=== PATIENT | male | born 1970 | race Two or more races ===

== ENCOUNTER 2016-05-31 07:38 | Emergency (ER) | payer BC, OTHER ==
[2016-05-31 07:43] VITALS: TEMP 98.4; BMI 33.3
--- NOTE | 2016-05-31 07:46 | PDOC ---
History of Present Illness <Naya Mclean - Last Filed: 05/31/16 15:57> - General History Source: Patient Exam Limitations: No Limitations - History of Present Illness Initial Comments: 05/31/16 07:50 CHIEF COMPLAINT: Shortness of breath PCP: Dr. Dale Alegre HISTORY OF PRESENT ILLNESS: Patient is a 45 [id number] presented to the ED with the chief complaints of SOB x 1 day. A/c to the patient, he was feeling well until last night, after work he ate dinner (Rice,beans, plantins,pork chops) and started to have SOB. He then took a glass of juice and felt better ;slept at 11:30pm and woke up at 5 :30 with SOB. He opened the window for fresh air but started feeling lightheaded , SOB persisted and hence came to the ED. Denies chest pain, cough, palpitation, abdominal pain, nausea, vomiting, fever, chills, rigors or sweating. Patient mentions this was his first episode. He has a h/o Hypertriglyceridemia, full cardiac work up was done at [facility] and had a cardiac cath without placement of stents. Bowel/Bladder habit normal. Sleep/Appetite Normal. Recent Travel: None PAST MEDICAL HISTORY: Walking pneumonia (twice) Migraine, Hypertriglyceridemia, Colon polyps, Appendectomy, Tonsillectomy, Left ankle repair, Left inguinal hernia repair. Takes no medication. PAST SURGICAL HISTORY: As mentioned above Social History: Smoking: Denies Alcohol: Denies Drugs: Denies Family History: Allergies: NKDA <Anu James - Last Filed: 05/31/16 17:11> - General Chief Complaint: Shortness of Breath Stated Complaint: TROUBLE BREATHING Time Seen by Provider: 05/31/16 07:46 Past History <Naya Mclean - Last Filed: 05/31/16 15:57> - Past Medical History Other medical history: DENIES - Surgical History Abdominal Surgery: Yes (Hernia Repair) Appendectomy: Yes - Immunization History Immunization Up to Date: No - Psycho/Social/Smoking Cessation Hx Anxiety: No Suicidal Ideation: No Smoking Status: No Smoking History: Never smoked Number of Cigarettes Smoked Daily: 0 Information on smoking cessation initiated: No <Anu James - Last Filed: 05/31/16 17:11> - Past Medical History Allergies/Adverse Reactions: Allergies Allergy/AdvReac Type Severity Reaction Status Date / Time morphine Allergy Verified 05/31/16 07:42 Home Medications: Ambulatory Orders No Home Medications 0 dose .ROUTE UTDICT 05/31/12 Review of Systems - Review of Systems Comments:: 05/31/16 09:47 CONSTITUTIONAL:~ Absent: fever, chills, diaphoresis, generalized weakness, malaise, loss of appetite HEENT:~ Absent: rhinorrhea, nasal congestion, throat pain, throat swelling, difficulty swallowing, mouth swelling, ear pain, eye pain, visual Changes CARDIOVASCULAR:~ Absent: chest pain, syncope, palpitations, irregular heart rate, lightheadedness , peripheral edema RESPIRATORY: Present: shortness of breath, dyspnea with exertion Absent: cough, orthopnea, wheezing, stridor, hemoptysis GASTROINTESTINAL: Absent: abdominal pain, abdominal distension, nausea, vomiting, diarrhea, constipation, melena, hematochezia GENITOURINARY:~ Absent: dysuria, frequency, urgency, hesitancy, hematuria, flank pain, genital pain MUSCULOSKELETAL:~ Absent: myalgia, arthralgia, joint swelling SKIN:~ Absent: rash, itching, pallor HEMATOLOGIC/IMMUNOLOGIC:~ Absent: easy bleeding, easy bruising, lymphadenopathy, frequent infections ENDOCRINE: Absent: unexplained weight gain, unexplained weight loss, heat intolerance, cold intolerance NEUROLOGIC:~ Absent: headache, focal weakness or paresthesias, dizziness, unsteady gait, seizure, mental status changes, bladder or bowel incontinence PSYCHIATRIC:~ Absent: anxiety, depression, suicidal or homicidal ideation, hallucinations. <Anu James - Last Filed: 05/31/16 17:11> *Physical Exam - Vital Signs Last Vital Signs Temp Pulse Resp BP Pulse Ox 98.4 F 68 20 136/59 98 05/31/16 07:38 05/31/16 11:30 05/31/16 11:30 05/31/16 11:30 05/31/16 11:30 <Naya Mclean - Last Filed: 05/31/16 15:57> - Vital Signs Last Vital Signs Temp Pulse Resp BP Pulse Ox 98.4 F 91 H 18 136/88 99 05/31/16 07:38 05/31/16 07:38 05/31/16 07:38 05/31/16 07:38 05/31/16 07:38 - Physical Exam Comments: 05/31/16 09:48 PE: GENERAL: Awake, alert, and fully oriented, in no acute distress HEAD: No signs of trauma EYES: PERRLA, EOMI, sclera anicteric, conjunctiva clear ENT: Auricles normal inspection, hearing grossly normal, nares patent, oropharynx clear without exudates. Moist mucosa NECK: Normal ROM, supple, no lymphadenopathy, JVD, or masses LUNGS: Hyperventilating, Breath sounds equal, clear to auscultation bilaterally. No wheezes, and no crackles.. HEART: Regular rate and rhythm, normal S1 and S2, no murmurs, rubs or gallops ABDOMEN: Soft, nontender, normoactive bowel sounds. No guarding, no rebound. No masses EXTREMITIES: Normal range of motion, no edema. No clubbing or cyanosis. No cords, erythema, or tenderness NEUROLOGICAL: Cranial nerves II through XII grossly intact. Normal speech, normal gait SKIN: Warm, Dry, normal turgor, no rashes or lesions noted. <Anu James - Last Filed: 05/31/16 17:11> Heart Score/ECG Review - ECG Impressions Comment:: EKG read 13:18- NSR 69 bpm, no acute ST/T changes <Naya Mclean - Last Filed: 05/31/16 15:57> ED Treatment Course - LABORATORY CBC & Chemistry Diagram: 05/31/16 08:55 05/31/16 08:54 - ADDITIONAL ORDERS Additional order review: Laboratory Results 05/31/16 05/31/16 05/31/16 13:04 13:04 08:54 Sodium 138 Potassium 4.6 Chloride 105 Carbon Dioxide 27 Anion Gap 6 L BUN 13 Creatinine 1.2 Creat Clearance w eGFR > 60 Random Glucose 153 H Calcium 8.4 L Total Bilirubin 0.5 AST 49 H ALT 68 Alkaline Phosphatase 79 Creatine Kinase 363 H Creatine Kinase Index 0.7 CK-MB (CK-2) 1.944 CK-MB (CK-2) Rel Index Cancelled Troponin I < 0.02 Total Protein 7.3 Albumin 3.8 05/31/16 05/31/16 08:53 08:53 Sodium Potassium Chloride Carbon Dioxide Anion Gap BUN Creatinine Creat Clearance w eGFR Random Glucose Calcium Total Bilirubin AST ALT Alkaline Phosphatase Creatine Kinase 358 H Creatine Kinase Index 0.4 CK-MB (CK-2) 1.505 CK-MB (CK-2) Rel Index Cancelled Troponin I < 0.02 Total Protein Albumin 05/31/16 08:55 RBC 5.00 MCV 84.1 MCHC 33.6 RDW 13.8 MPV 8.8 - Medications Given in the ED: ED Medications Discontinued Medications Generic Name Dose Route Start Last Admin Trade Name Ale PRN Reason Stop Dose Admin Albuterol Sulfate 1 amp 05/31/16 08:08 05/31/16 08:14 Ventolin 0.042trength) - NEB 05/31/16 08:09 1 amp ONCE ONE Administration <Naya Mclean - Last Filed: 05/31/16 15:57> - LABORATORY CBC & Chemistry Diagram: 05/31/16 08:55 05/31/16 08:54 <Anu James - Last Filed: 05/31/16 17:11> Medical Decision Making - Medical Decision Making 05/31/16 07:55 Patient seen and examined at bed side. Vitals, unremarkable. Patient comfortably sitting on a bed, able to speak a full sentence without short of breath. Physical examination: Hyperventilating, rest is normal. Will order CBC, CMP, UA, EKG, CXR, Cardiac enzymes Albuterol Neb Differential: Asthma, allergy, R/O ACS, R/O pneumonia Wells score for PE: Zero 05/31/2016 8:00 Patient reassessed. SOB has improved. Labs noted, troponins negative Call placed to Dr. Ardon @ 10:41. Since patient had a cardiac cath 6-7 years ago at [facility], would like to let Dr. Ardon know about his ER visit. 05/31/16 10:[address] Ardon over the phone. As per his recommendations, ordered second set of troponins and EKG. If it is normal, plan is to discharge her home and follow up with Dr. Ardon at his office tomorrow. 05/31/2016 11:30 Dr. Ardon ordered treadmill stress test. Will wait for the results, if normal he can be discharged. 05/31/16 15:00 Patient reassessed. All labs normal. Clinical Impression: Shortness of breath unknown etiology All labs normal; echo and treadmill stress test done today Seen by Dr. Ardon Patient is asymptomatic now, is hemodynamically stable and can be discharged F/up with Dr. Ardon at his office tomorrow. Return to the ED with increasing symptoms or if any new symptoms develop. Illness, Investigation and Plan of care explained to the patient. He verbalized understanding. Case seen and discussed with Dr. Mclean. <Anu James - Last Filed: 05/31/16 17:11> *DC/Admit/Observation/Transfer - Discharge Dispostion Admit: No <Naya Mclean - Last Filed: 05/31/16 15:57> <Anu James - Last Filed: 05/31/16 17:11> Diagnosis at time of Disposition: Chest pain Qualifiers: Chest pain type: unspecified Qualified Code(s): R07.9 - Chest pain, unspecified - Discharge Dispostion Disposition: HOME Condition at time of disposition: Stable - Referrals Referrals: Dale Alegre MD [Primary Care Provider] - - Patient Instructions Printed Discharge Instructions: DI for Chest Pain
--- NOTE | 2016-05-31 08:01 | PDOC ---
Attending Attestation - Resident Resident Name: Anu James - ED Attending Attestation I have performed the following: I have examined & evaluated the patient, The case was reviewed & discussed with the resident, I agree w/resident's findings & plan, Exceptions are as noted - HPI HPI: 45 yo M history of hypertriglyceridemia presents with two episodes of SOB, chest pain since last night. First occurred while he was lying down watching TV after eating dinner last night. He had a second episode early this morning. Denies nausea, vomiting, sweating. Both times he was lying down. He has not had prior similar symptoms. He follows up with Dr. Ardon for cardiology. He has had a negative cardiac cath a few years ago. - Physicial Exam PE: GENERAL: Awake, alert, and fully oriented, in no acute distress HEAD: No signs of trauma EYES: PERRLA, EOMI, sclera anicteric, conjunctiva clear ENT: Auricles normal inspection, hearing grossly normal, nares patent, oropharynx clear without exudates. Moist mucosa NECK: Normal ROM, supple, no lymphadenopathy, JVD, or masses LUNGS: Breath sounds equal, clear to auscultation bilaterally. No wheezes, and no crackles HEART: Regular rate and rhythm, normal S1 and S2, no murmurs, rubs or gallops ABDOMEN: Soft, nontender, normoactive bowel sounds. No guarding, no rebound. No masses EXTREMITIES: Normal range of motion, no edema. No clubbing or cyanosis. No cords, erythema, or tenderness NEUROLOGICAL: Cranial nerves II through XII grossly intact. Normal speech, normal gait SKIN: Warm, Dry, normal turgor, no rashes or lesions noted. - Medical Decision Making Symptoms are not reproduced in a reclining position, and he had no recent URI symptoms, so pericarditis would be unlikely. He has family history and hx of high triglycerides, so ACS is a consideration, although the symptoms are somewhat atypical. D/w Dr. Ardon. Will obtain echo and second set of Jason, and if wnl, will DC home.
[2016-05-31] MEDS ORDERED: ALBUTEROL SO4 0.042% IH SOL 1.25 MG/3 ML VIAL.NEB NEB ONE (08:08)
[2016-05-31] MEDS ORDERED: ALBUTEROL SO4 0.083% IH SOL 2.5 MG/3 ML VIAL.NEB. NEB ONE (08:09)
[2016-05-31 09:12] LABS: MCH 28.2 pg (25.7-33.7); MCHC 33.6 g/dl (32.0-35.9); MEAN CELL VOLUME 84.1 fl (80-96); MEAN PLT VOLUME 8.8 fl (7.5-11.1); PLATELET COUNT 174 K/MM3 (134-434); RDW 13.8 % (11.9-15.9); WHITE BLOOD COUNT 5.9 K/mm3 (4.0-10.0)
[2016-05-31 09:40] LABS: ALBUMIN 3.8 g/dl (3.4-5.0); ALK PHOS 79 U/L (45-117); ANION GAP 6 (8-16); BILIRUBIN,TOTAL 0.5 mg/dL (0.2-1.0); CALCIUM 8.4 mg/dL (8.5-10.1); CO2 27 mmol/L (21-32); CREATININE 1.2 mg/dL (0.7-1.3); GLUCOSE,RANDOM 153 mg/dL (74-106); TOT PROT 7.3 g/dl (6.4-8.2)
[2016-05-31 09:41] LABS: TROPONIN I < 0.02 ng/ml (0.00-0.05)
[2016-05-31 09:44] LABS: SGOT/AST 49 U/L (15-37)
[2016-05-31 09:45] LABS: SGPT/ALT 68 U/L (12-78)
--- NOTE | 2016-05-31 10:57 | PN ---
Progress Note (short form) - Note Progress Note: Cardiology Consult Dictated Shortness of breath, paroxysmal, difficulty swallowing Suspect GERD +/- anxiety REC: 2nd set cardiac enzymes at 1pm w/ repeat ECG Echo If above WNL, ok to discharge from CV perspective w/ outpatient f/u.
[2016-05-31 12:44] VITALS: BP 136/59; PULSE 68
--- NOTE | 2016-05-31 13:46 | EKG ---
Test Reason : Blood Pressure : / mmHG Vent. Rate : 081 BPM Atrial Rate : 081 BPM P-R Int : 148 ms QRS Dur : 102 ms QT Int : 386 ms P-R-T Axes : 060 049 022 degrees QTc Int : 448 ms NORMAL SINUS RHYTHM NORMAL ECG WHEN COMPARED WITH ECG OF 04-JUN-1997 10:44, QT HAS LENGTHENED Confirmed by CHANDNI HERNANDES MD ([id number]) on 05/31/2016 1:46:12 PM Referred By: Confirmed By:CHANDNI HERNANDES MD
[2016-05-31 13:55] LABS: TROPONIN I < 0.02 ng/ml (0.00-0.05)
--- NOTE | 2016-05-31 14:08 | EKG ---
Test Reason : Blood Pressure : / mmHG Vent. Rate : 069 BPM Atrial Rate : 069 BPM P-R Int : 160 ms QRS Dur : 100 ms QT Int : 396 ms P-R-T Axes : 053 053 030 degrees QTc Int : 424 ms NORMAL SINUS RHYTHM NORMAL ECG WHEN COMPARED WITH ECG OF 31-MAY-2016 08:38, NO SIGNIFICANT CHANGE WAS FOUND Confirmed by CHANDNI HERNANDES MD ([id number]) on 05/31/2016 2:08:27 PM Referred By: Confirmed By:CHANDNI HERNANDES MD
--- NOTE | 2016-05-31 15:26 | CONS ---
DATE OF CONSULTATION: 05/31/2016 REQUESTED BY: Naya Mclean MD REASON FOR CONSULTATION: Shortness of breath. HISTORY OF PRESENT ILLNESS: The patient is a 45-year-old male with no chronic past medical history on no chronic medications who presents to the emergency department with 2 episodes of shortness of breath associated with difficulty swallowing and inability to take a deep satiating breath at home. He denies chest pain, fevers, chills, cough or recent viral upper respiratory infections. He denies palpitations. He denies lower extremity edema. He describes undergoing a cardiac catheterization about 5 years ago at [facility], which was unremarkable. PAST MEDICAL HISTORY: He denies chronic medical problems. ALLERGIES: MORPHINE. MEDICATIONS: He takes no chronic medications. FAMILY HISTORY: There is no early family history of CAD or sudden cardiac by his report. SOCIAL HISTORY: Works as a teacher. No tobacco, alcohol or drugs. PHYSICAL EXAMINATION: Vital Signs: Afebrile, temperature 98.4, pulse 91 and regular, blood pressure 136/85, O2 saturation 99 on room air. HEENT: Anicteric. NECK: No bruits. HEART: S1, S2 regular. No murmurs. CHEST: Clear. No wheezing, rales, or rhonchi. ABDOMEN: Soft. EXTREMITIES: No edema. IMAGING: Chest x-ray normal. EKG sinus with no acute ST changes. LABORATORY DATA: Normal CBC. Sodium 138, potassium 4.6, creatinine 1.2, CK 358, CKMB negative. Troponin negative. ASSESSMENT: A 45-year-old male with paroxysms and shortness of breath and associate with difficult swallowing and sensation of inability to take a satiating breath. He is hemodynamically stable with normal oxygen saturation and a normal electrocardiogram. He reports a previously normal coronary angiogram several years ago at [facility]. The differential includes anxiety/panic versus gastroesophageal reflux disease versus pleurisy. PLAN: 1. A second set of cardiac enzymes this afternoon. 2. Echocardiogram. 3. If above diagnostic studies are unremarkable and repeat EKG is stable, would be acceptable for discharge from a cardiovascular standpoint with outpatient followup with PMD and with Cardiology this week. Thank you for the consultation. IESHA BOURGEOIS M.D. [id number]
--- NOTE | 2016-05-31 16:20 | TRE ---
Protocol Name : NEY Max Work Load (METS*10) : 101 Time In Exercise Phase : 00:08:01 Max. Systolic BP : 158 mmHg Max Diastolic BP : 90 mmHg Max Heart Rate : 150 BPM Max Predicted Heart Rate : 174 BPM Attending Physician : CHANDNI HERNANDES Reason For Termination : Target Heart Rate Achieved Reason for Test : SOB Stress Protocol : NEY Rest HR : 82 BPM PeakEx METs : 10.1 METS Recovery ECG Response (OLD) : Diagnosis : Normal EST. no ischemic symptoms no diagnostic ekg changes no arrhythmia. Confirmed by CHANDNI HERNANDES MD ([id number]) on 05/31/2016 4:20:17 PM
== END 2016-05-31 16:20 | disposition home or self-care (01) ==
LOC: JER 07:38
PROC: 3E0F7GC Introduction of Other Therapeutic Substance into Respiratory Tract, Via Natural or Artificial Opening (ICD-10-PCS; principal; 2016-05-31)
DX: R07.9 Chest pain, unspecified (principal); E78.5 Hyperlipidemia, unspecified
CPT/HCPCS: 36415; 71020-TC; 80053; 82550; 82553; 84484; 85027; 93005; 93010; 93017; 93018; 93306-TC; 99284-25

== ENCOUNTER 2019-10-05 06:36 | Observation (INO) | payer BC ==
[2019-10-05] MEDS ORDERED: SODIUM CHLORIDE 0.9% 500 ML INFUS.BAG IV ONE (07:13)
[2019-10-05] MEDS ORDERED: ACETAMINOPHEN 1000 MG/100 ML VIAL (NON FORMULARY) IVPB ONE (07:13)
[2019-10-05 07:14] VITALS: BMI 29.1
--- NOTE | 2019-10-05 07:15 | PDOC ---
History of Present Illness - General Stated Complaint: CHEST PAIN, SOB Time Seen by Provider: 10/05/19 07:01 History Source: Patient - History of Present Illness Initial Comments: 10/05/19 07:14 49M w/hx asthma, newly diagnosed DM p/w 3 days of chest pain, sob. Rates chest pain 6/10, intermittent, sternal, no radiation, non-pleuritic, associated with mild sob. He also reports R arm pain for the last 2 days after lifting something heavy. He reports presenting to [facility] on for evaluation but reports that nothing was found at that time. He reports that since then he returned home hoping symptoms would improve but presents today due to ongoing intermittent chest discomfort. He has a follow up appointment scheduled with Dr. Ardon on Sunday. PCP: Dale Alegre Cardio: Dr. Ardon Past History - Medical History Allergies/Adverse Reactions: Allergies Allergy/AdvReac Type Severity Reaction Status Date / Time morphine Allergy Verified 10/05/19 09:14 Home Medications: Ambulatory Orders No Home Medications 0 dose .ROUTE UTDICT 05/31/12 - Surgical History Abdominal Surgery: Yes (Hernia Repair) Appendectomy: Yes Cardiac Surgery: Yes (catheterization without stent placement) - Immunization History Immunization Up to Date: No - Psycho-Social/Smoking History Smoking Status: No Smoking History: Never smoked Have you smoked in the past 12 months: No Number of Cigarettes Smoked Daily: 0 - Substance Abuse Hx (Audit-C & DAST Scrn) How often the patient has a drink containing alcohol: Never Score: In Men: 4 or > Positive; In Women: 3 or > Positive: 0 Screen Result (Pos requires Nsg. Audit-10AR): Negative In the last yr the pt used illegal drug/Rx for NonMed reason: No Score: Yes response is considered Positive: 0 Screen Result (Positive result requires Nsg. DAST-10): Negative Review of Systems - Review of Systems Able to Perform ROS?: Yes Comments:: 10/05/19 08:53 GENERAL/CONSTITUTIONAL: No fever or chills. No weakness. HEAD, EYES, EARS, NOSE AND THROAT: No change in vision. No ear pain or discharge. No sore throat. CARDIOVASCULAR: Chest pain, shortness of breath RESPIRATORY: No cough, wheezing, or hemoptysis. GASTROINTESTINAL: No nausea, vomiting, diarrhea or constipation. GENITOURINARY: No dysuria, frequency, or change in urination. MUSCULOSKELETAL: No joint or muscle swelling or pain. No neck or back pain. SKIN: No rash NEUROLOGIC: No headache, vertigo, loss of consciousness, or change in strength/sensation. ENDOCRINE: No increased thirst. No abnormal weight change HEMATOLOGIC/LYMPHATIC: No anemia, easy bleeding, or history of blood clots. ALLERGIC/IMMUNOLOGIC: No hives or skin allergy. *Physical Exam - Vital Signs Last Vital Signs Temp Pulse Resp BP Pulse Ox 98.2 F 73 16 127/88 100 10/05/19 07:09 10/05/19 07:09 10/05/19 07:09 10/05/19 07:09 10/05/19 07:09 - Physical Exam 10/05/19 08:53 GENERAL: Awake, alert, and fully oriented, in no acute distress HEAD: No signs of trauma, normocephalic, atraumatic EYES: PERRLA, EOMI, sclera anicteric, conjunctiva clear ENT: Auricles normal inspection, hearing grossly normal, nares patent, oropharynx clear without exudates. Moist mucosa NECK: Normal ROM, supple, no lymphadenopathy, JVD, or masses LUNGS: No distress, speaks full sentences, clear to auscultation bilaterally HEART: Regular rate and rhythm, normal S1 and S2, no murmurs, rubs or gallops, peripheral pulses normal and equal bilaterally. ABDOMEN: Soft, nontender, normoactive bowel sounds. No guarding, no rebound. No masses EXTREMITIES : Normal inspection, Normal range of motion, no edema. No clubbing or cyanosis NEUROLOGICAL: Cranial nerves II through XII grossly intact. Normal speech, normal gait, no focal sensorimotor deficits SKIN: Warm, Dry, normal turgor, no rashes or lesions noted Heart Score/ECG Review - History History: Slightly suspicious - Electrocardiogram EKG: Non specific repolarization disturbance - Age Age: 45-65 - Risk Factors Risk Factors Heart Score: Yes Hx Hypercholesterolemia, Yes Hx Diabetes, Yes Positive family hx of cardiac disease Based on the list above the patient has:: >/=3 risk factors or Hx atherosclerotic disease - Troponin Troponin: </= normal limit - Score Heart Score - Total: 4 ED Treatment Course - LABORATORY CBC & Chemistry Diagram: 10/05/19 07:00 10/05/19 07:00 - ADDITIONAL ORDERS Additional order review: Laboratory Results 10/05/19 06:46 POC Glucometer 201 10/05/19 06:46 POC Glucometer 201 - RADIOLOGY Radiology Studies Ordered: Category Date Time Status CHEST X-RAY PORTABLE* [RAD] Stat Radiology 10/05/19 07:13 Ordered Medical Decision Making - Medical Decision Making 10/05/19 08:53 49M w/hx HLD, DM, p/w 3 days of chest discomfort, mild sob. Ddx ACS, arrhythmia, electrolyte derangement, hyper/hypoglycemia. HEART score: 4. Plan: CBC CMP EKG CXR PT/INR, APTT Troponin I ASA 325mg 1L NS Ofirmev 1g Dispo: Admit cardiac obs Discharge - Discharge Information Problems reviewed: Yes Clinical Impression/Diagnosis: Chest pain Qualifiers: Chest pain type: unspecified Qualified Code(s): R07.9 - Chest pain, unspecified Condition: Stable - Admission Yes - Follow up/Referral Referrals: Dale Alegre MD [Primary Care Provider] - - Patient Discharge Instructions - Post Discharge Activity
[2019-10-05 07:27] LABS: EOS % 3.4 % (0-4.5); HEMATOCRIT 42.9 % (35.4-49); LYMPH % 22.6 % (8-40); MCH 27.4 pg (25.7-33.7); MCHC 32.6 g/dl (32.0-35.9); MEAN CELL VOLUME 84.2 fl (80-96); MEAN PLT VOLUME 9.6 fl (7.5-11.1); MONO % 8.9 % (3.8-10.2); NEUT % 64.1 % (42.8-82.8); PLATELET COUNT 192 K/MM3 (134-434); RDW 13.9 % (11.9-15.9)
[2019-10-05 07:37] LABS: INR 0.94 (0.83-1.09); PROTHROMBIN TIME (PATIENT) 11.1 SEC (9.7-13.0)
[2019-10-05] MEDS ORDERED: ACETAMINOPHEN INJECTION 100 ML IVPB ONE (07:39)
[2019-10-05 07:40] LABS: ACTIVATED PTT 27.8 SECONDS (25.2-36.5)
[2019-10-05 07:45] LABS: ALBUMIN 3.8 g/dl (3.4-5.0); ALK PHOS 81 U/L (45-117); ANION GAP 10 MMOL/L (8-16); BILIRUBIN,TOTAL 0.4 mg/dL (0.2-1); BLOOD UREA NITROGEN 16.9 mg/dL (7-18); CALCIUM 9.2 mg/dL (8.5-10.1); CHLORIDE 103 mmol/L (98-107); CO2 24 mmol/L (21-32); CREATININE 1.1 mg/dL (0.55-1.3); GLUCOSE,RANDOM 203 mg/dL (74-106); N-TERMINAL BNP 43.5 pg/ml (5-125); POTASSIUM 4.1 mmol/L (3.5-5.1); SGOT/AST 19 U/L (15-37); SGPT/ALT 36 U/L (13-61); SODIUM 138 mmol/L (136-145); TOT PROT 6.8 g/dl (6.4-8.2)
[2019-10-05] MEDS ORDERED: ASPIRIN 325 MG ENTERIC COATED TABLET (FP) PO ONE (08:01)
[2019-10-05] MEDS ORDERED: ASPIRIN 325 MG ENTERIC COATED TABLET (FP) ONE (08:06)
--- NOTE | 2019-10-05 08:20 | PDOC ---
Attending Attestation - Resident Resident Name: MarckAllen - ED Attending Attestation I have performed the following: I have examined & evaluated the patient, The case was reviewed & discussed with the resident, I agree w/resident's findings & plan, Exceptions are as noted - HPI HPI: 49 yo M history asthma, diagnosed with DM this past week, presents with 3 day history of cp, SOB. He states the chest pain is moderate at its worst, currently mild. Described as pressure/squeazing sensation. No known exacerbating or ameliorating factors. He was seen at [facility] on , states he did not have bloodwork at the time. He follows with Dr. Ardon as an outpatient, has an appointment in 2 days. He had a prior cath a few years ago, reportedly negative. No recent stress test. - Physicial Exam PE: GENERAL: Awake, alert, and fully oriented, in no acute distress HEAD: No signs of trauma EYES: PERRLA, EOMI, sclera anicteric, conjunctiva clear ENT: Auricles normal inspection, hearing grossly normal, nares patent, oropharynx clear without exudates. Moist mucosa NECK: Normal ROM, supple, no lymphadenopathy, JVD, or masses LUNGS: Breath sounds equal, clear to auscultation bilaterally. No wheezes, and no crackles HEART: Regular rate and rhythm, normal S1 and S2, no murmurs, rubs or gallops ABDOMEN: Soft, nontender, normoactive bowel sounds. No guarding, no rebound. No masses EXTREMITIES: Normal range of motion, no edema. No clubbing or cyanosis. No cords, erythema, or tenderness NEUROLOGICAL: Cranial nerves II through XII grossly intact. Normal speech, normal gait. Motor and sensation intact SKIN: Warm, dry, normal turgor, no rashes or lesions noted. - Medical Decision Making Pt with ongoing pressure-like L-sided cp, recently diagnosed with DM. Will plan for labs, CXR, obs for cp. Heart Score/ECG Review - History History: Moderately suspicious - Electrocardiogram EKG: Normal - Age Age: 45-65 - Risk Factors Risk Factors Heart Score: Yes Hx Hypercholesterolemia, Yes Hx Diabetes, Yes Hx Obesity Based on the list above the patient has:: >/=3 risk factors or Hx atherosclerotic disease - Troponin Troponin: </= normal limit - Score Heart Score - Total: 4 Discharge - Discharge Information Problems reviewed: Yes Clinical Impression/Diagnosis: Chest pain Qualifiers: Chest pain type: unspecified Qualified Code(s): R07.9 - Chest pain, unspecified Condition: Stable - Follow up/Referral Referrals: Dale Alegre MD [Primary Care Provider] - - Patient Discharge Instructions - Post Discharge Activity
[2019-10-05] MEDS ORDERED: morphine SULFATE 4 MG/ML VIAL IVPUSH PRN (11:41)
[2019-10-05] MEDS ORDERED: NITROGLYCERIN SUBLINGUAL 1/200 0.3 MG BTL SL PRN (11:44)
--- NOTE | 2019-10-05 12:07 | CON.CARD ---
Consult Consult Specialty:: Cardiology Referred by:: Dr. Mclean Reason for Consultation:: chest pain - History of Present Illness Chief Complaint: cp History of Present Illness: 49 M recently resumed Metformin for uncontrolled DM. Since : intermittent chest pain "little stabs" non-exertional, central chest + right arm "aches" for about a week, throbbing right upper arm/shoulder, not with movement +light headedness + SOB, not relieved with "asthma pump" No edema/palps/syncope/PND/orthopnea No fever/cough ECG reviewed: NSR around 60bpm, no acute ST changes O2 99% RA 1st set enzymes negative - History Source History Provided By: Patient Limitations to Obtaining History: No Limitations - Past Medical History [employer]: No: Alzheimer's, CVA, Dementia, Migraine, Multiple Sclerosis, Peripheral Neuropathy, Parkinson's, Seizure, Syncope, TIA, Vertigo, Other Cardio/Vascular: No: AFIB, Aneurysm, Aortic Insufficiency, Aortic Stenosis, CAD, CHF, Deep Vein Thrombosis, HTN, Hyperlipdemia, SD, Mitral Insufficiency, Mitral Stenosis, Murmur, Pulmonary Hypertension, Other Pulmonary: No: Asthma, Bronchitis, Cancer, COPD, O2 Dependent, Pneumonia, Previously Intubated, Pulmonary Embolus, Pulmonary Fibrosis, Sleep Apnea, Other Gastrointestinal: No: Ascites, Cancer, Constipation, Crohn's Disease, Diverticulitis, Diverticulosis, Esophageal Varices, Gastritis, GERD, GI Bleed, Hemorrhoids, Hiatal Hernia, Inflamatory Bowel Disease, Irritable Bowel Disease, Pancreatitis, Peptic Ulcer Disease, Ulcerative Colitis, Other Hepatobiliary: No: Cirrhosis, Cholelithiasis, Cholecystitis, Choledocholithiasis, Hepatitis A, Hepatitis B, Hepatitis C, Other Renal/: No: Renal Failure, Renal Inusuff, BPH, Cancer, Hematuria, Hemodialysis, Neurogenic Bladder, Renal Calculi, UTI, Other Heme/Onc: No: Anemia, B12 Deficiency, Bleeding Disorder, Cancer, Current Chemotherapy, Current Radiation Therapy, Hemochromatosis, Hypercoaguable State, Myeloproliferative Synd, Sickle Cell Disease, Sickle Cell Trait, Thrombocytopenia, Other Infectious Disease: No: AIDS, C-Diff, Herpes Zoster, HIV, MRSA, STD's, Tuberculosis, VREF, Other Psych: No: Addictions, Anxiety, Bipolar, Depression, Panic, Psychosis, Schizophrenia, Other Rheumatology: No: Fibromyalgia, Gout, Lupus, Rheumatoid Arthritis, Sarcoidosis, Vasculitis, Other Endocrine: Yes: Diabetes Mellitus Dermatology: No: Basal Cell, Cellulitis, Eczema, Melanoma, Psoriasis, Squamous Cell, Other - Past Surgical History Past Surgical History: No: None, AAA Repair, AICD, Amputation, Appendectomy, Arthrosocopy, AV Fistula/Graft, Bariatric Surgery, Breast Biopsy, Bypass, CABG, Carotid Endarterectomy, Cataract Removal, Cholecystectomy, Colectomy, Colonoscopy, Colostomy, Craniotomy, , Cystectomy, Hernia Repair, Hysterectomy, Ileal Conduit, Ileosotomy, Joint Replacement, Kidney Transplant, Laminectomy, Liver Transplant, Mastectomy, Nephrectomy, Oopherectomy, Orchiecto my, Permanent Pacemaker, Prostatectomy, Splenectomy, Stent, Thoracotomy, TURP, Tonsillectomy, Tubal Ligation, Upper Endoscopy, Valve Replacement, Vasectomy, Vein Stripping/Ligation - Alcohol/Substance Use History of Substance Use: denies: None, Cocaine, Heroin, Marijuana, Prescription, Tranquilizers - Smoking History Smoking history: Never smoked Have you smoked in the past 12 months: No Aproximately how many cigarettes per day: 0 - Social History History of Recent Travel: No Home Medications - Allergies Allergies/Adverse Reactions: Allergies Allergy/AdvReac Type Severity Reaction Status Date / Time morphine Allergy Verified 10/05/19 09:14 - Home Medications Home Medications: Ambulatory Orders No Home Medications 0 dose .ROUTE UTDICT 05/31/12 Family Medical History Family History: Unremarkable (mother CVA) Review of Systems - Review of Systems Constitutional: reports: No Symptoms Eyes: reports: No Symptoms HENT: reports: No Symptoms Neck: reports: No Symptoms Cardiovascular: reports: Chest Pain, Shortness of Breath, Other (lightheadness x 4 days) Respiratory: reports: SOB Gastrointestinal: reports: No Symptoms Genitourinary: reports: No Symptoms Breasts: reports: No Symptoms Reported Musculoskeletal: reports: No Symptoms Integumentary: reports: No Symptoms Neurological: reports: No Symptoms Endocrine: reports: No Symptoms Hematology/Lymphatic: reports: No Symptoms Psychiatric: reports: No Symptoms - Risk Factors Known Risk Factors: Yes: Age, Diabetes Mellitus, Hypercholesterolemia Vital Signs: Vital Signs Temperature 98.2 F 10/05/19 07:09 Pulse Rate 58 L 10/05/19 10:44 Respiratory Rate 15 10/05/19 10:44 Blood Pressure 116/79 10/05/19 10:44 O2 Sat by Pulse Oximetry (%) 100 10/05/19 10:06 Constitutional: Yes: No Distress, Anxious Eyes: Yes: Conjunctiva Clear, EOM Intact HENT: Yes: Atraumatic, Normocephalic Neck: Yes: Supple, Trachea Midline Respiratory: Yes: Regular, CTA Bilaterally Gastrointestinal: Yes: Normal Bowel Sounds, Soft Cardiovascular: Yes: Regular Rate and Rhythm JVD: No Carotid Bruit: No PMI: Non-Displaced Heart Sounds: Yes: S1, S2 (rrr, no m/r/g) Edema: No Peripheral Pulses WNL: Yes Neurological: Yes: Alert, Oriented ...Motor Strength: WNL - Other Data Labs, Other Data: CBC, BMP 10/05/19 07:00 10/05/19 07:00 INR, PTT INR 0.94 (0.83-1.09) 10/05/19 07:00 Troponin, BNP 10/05/19 07:00 Troponin I < 0.02 B-Natriuretic Peptide 43.5 Troponin, BNP 10/05/19 07:00 Troponin I < 0.02 B-Natriuretic Peptide 43.5 Laboratory Tests 10/05/19 10/05/19 10/05/19 07:00 07:00 07:00 WBC 5.0 Hgb 14.0 Plt Count 192 PT with INR 11.10 INR 0.94 PTT (Actin FS) 27.8 Sodium 138 Potassium 4.1 BUN 16.9 Creatinine 1.1 Alkaline Phosphatase 81 Troponin I < 0.02 COVID-19 (NILO) 10/05/19 09:00 WBC Hgb Plt Count PT with INR INR PTT (Actin FS) Sodium Potassium BUN Creatinine Alkaline Phosphatase Troponin I COVID-19 (NILO) Pending Echo: Pending Imaging - Results X-ray: Report Reviewed, Image Reviewed (No acute chest pathology) Assessment/Plan IMP: 49M with uncontrolled DM with several days of intermittent atypical CP, right arm discomfort, sob and lightheadedness. While some of this may be a side effect of Metformin, risk factor profile warrants further risk stratification. REC: 1. Telemetry until r/o SD 2. Echo in AM EF assessment 3. Plan for exercise MIBI in AM, NPO after 12am 4. Will review prior cath from [place] > 5 years ago 5. ASA daily 6. Fasting lipids 7. A1c and DM control as per primary team
--- NOTE | 2019-10-05 12:34 | HP ---
CHIEF COMPLAINT: chest pain, shortness of breath PCP: Codey HISTORY OF PRESENT ILLNESS: 49 y/o malew ith hx of asthma and recently diagnosed DM (was seen for a physical on sunday with his PMD - blood sugar 400 and started on metformin) presents with a few days of chest pressure and shortness of breath. Pt states he started the metformin and on started feeling intermittent chest pressure. By night the pain was worse and was seen at [facility] ER and discahrged -- told his ekg was normal. Pt states he was fine on sun and sat -- but pain began again this am. Not related to any food intake. No left arm pain or radiation of the pain. Pain is located in the left chest region. This morning the pain was mroe constant bringing him to the ER for further eval. Pt reports right arm pain, reports lifting heavy equipment with his right arm a few weeks ago No associated nausea, vomiting with the chest pain, no cough, cold, recent illnesses. ER course was notable for: (1) chest pain (2) (3) Recent Travel: Denies PAST MEDICAL HISTORY: asthma, DM PAST SURGICAL HISTORY: appy, left ankle fracture Social History: Smoking: Denies Alcohol: Denies Drugs: Denies Allergies morphine Allergy (Verified 10/05/19 09:14) HOME MEDICATIONS: Home Medications Medication Instructions Recorded No Home Medications 0 dose .ROUTE UTDICT 05/31/12 REVIEW OF SYSTEMS CONSTITUTIONAL: Absent: fever, chills, diaphoresis, generalized weakness, malaise, loss of appetite, weight change HEENT: Absent: rhinorrhea, nasal congestion, throat pain, throat swelling, difficulty swallowing, mouth swelling, ear pain, eye pain, visual changes CARDIOVASCULAR: Pos chest pain, No syncope, Occasional palpitations, No irregular heart rate, lightheadedness, peripheral edema RESPIRATORY: Absent: cough, Pos shortness of breath, No dyspnea with exertion, POS orthopnea, No wheezing, stridor, hemoptysis GASTROINTESTINAL: Absent: abdominal pain, abdominal distension, nausea, vomiting, diarrhea, constipation, melena, hematochezia GENITOURINARY: Absent: dysuria, frequency, urgency, hesitancy, hematuria, flank pain, genital pain MUSCULOSKELETAL: Absent: myalgia, arthralgia, joint swelling, back pain, neck pain POS RIGHT ARM PAIN SKIN: Absent: rash, itching, pallor HEMATOLOGIC/IMMUNOLOGIC: Absent: easy bleeding, easy bruising, lymphadenopathy, frequent infections ENDOCRINE: Absent: unexplained weight gain, unexplained weight loss, heat intolerance, cold intolerance NEUROLOGIC: Absent: headache, focal weakness or paresthesias, dizziness, unsteady gait, seizure, mental status changes, bladder or bowel incontinence PSYCHIATRIC: Absent: anxiety, depression, suicidal or homicidal ideation, hallucinations. PHYSICAL EXAMINATION Vital Signs - 24 hr 10/05/19 10/05/19 10/05/19 07:09 08:41 09:13 Temperature 98.2 F Pulse Rate 73 Pulse Rate [ 63 62 Both] Respiratory 16 15 15 Rate Blood Pressure 127/88 Blood Pressure 123/82 131/70 [Left] O2 Sat by Pulse 100 97 100 Oximetry (%) 10/05/19 10/05/19 10/05/19 10:06 10:44 11:37 Temperature Pulse Rate Pulse Rate [ 54 L 58 L 66 Both] Respiratory 16 15 15 Rate Blood Pressure Blood Pressure 121/96 116/79 104/89 [Left] O2 Sat by Pulse 100 100 Oximetry (%) GENERAL: Awake, alert, and fully oriented, in no acute distress. HEAD: Normal with no signs of trauma. EYES: extraocular movements intact, sclera anicteric, conjunctiva clear. No lid lag. EARS, NOSE, THROAT: Ears normal, nares patent, oropharynx clear without exudates. Moist mucous membranes. NECK: Normal range of motion, supple without lymphadenopathy, JVD, or masses. LUNGS: Breath sounds equal, clear to auscultation bilaterally. No wheezes, and no crackles. No accessory muscle use. HEART: Regular rate and rhythm, normal S1 and S2 without murmur, rub or gallop. ABDOMEN: Soft, nontender, not distended, normoactive bowel sounds, no guarding, no rebound, no masses. No hepatomegaly or splenomegaly. MUSCULOSKELETAL: Normal range of motion at all joints. No bony deformities or tenderness. No CVA tenderness. UPPER EXTREMITIES: 2+ pulses, warm, well-perfused. No cyanosis. No clubbing. No peripheral edema. Full ROM RIGHT ARM BUT HAS PAIN LOWER EXTREMITIES: 2+ pulses, warm, well-perfused. No calf tenderness. No peripheral edema. NEUROLOGICAL: Cranial nerves II-XII intact. Normal speech. Normal gait. PSYCHIATRIC: Cooperative. Good eye contact. Appropriate mood and affect. SKIN: Warm, dry, normal turgor, no rashes or lesions noted, normal capillary refill. Laboratory Results - last 24 hr 10/05/19 10/05/19 10/05/19 06:46 07:00 07:00 WBC 5.0 RBC 5.10 Hgb 14.0 Hct 42.9 MCV 84.2 MCH 27.4 MCHC 32.6 RDW 13.9 Plt Count 192 MPV 9.6 Absolute Neuts (auto) 3.2 Neutrophils % 64.1 Lymphocytes % 22.6 Monocytes % 8.9 Eosinophils % 3.4 Basophils % 1.0 Nucleated RBC % 0 PT with INR 11.10 INR 0.94 PTT (Actin FS) 27.8 Sodium Potassium Chloride Carbon Dioxide Anion Gap BUN Creatinine Est GFR (CKD-EPI)AfAm Est GFR (CKD-EPI)NonAf POC Glucometer 201 Random Glucose Calcium Total Bilirubin AST ALT Alkaline Phosphatase Troponin I B-Natriuretic Peptide Total Protein Albumin 10/05/19 07:00 WBC RBC Hgb Hct MCV MCH MCHC RDW Plt Count MPV Absolute Neuts (auto) Neutrophils % Lymphocytes % Monocytes % Eosinophils % Basophils % Nucleated RBC % PT with INR INR PTT (Actin FS) Sodium 138 Potassium 4.1 Chloride 103 Carbon Dioxide 24 Anion Gap 10 BUN 16.9 Creatinine 1.1 Est GFR (CKD-EPI)AfAm 90.24 Est GFR (CKD-EPI)NonAf 77.86 POC Glucometer Random Glucose 203 H Calcium 9.2 Total Bilirubin 0.4 AST 19 ALT 36 Alkaline Phosphatase 81 Troponin I < 0.02 B-Natriuretic Peptide 43.5 Total Protein 6.8 Albumin 3.8 EKG: NSR@69BPM CXR: napd ASSESSMENT/PLAN: 49 Y/O MALE WITH THE ABOVE MED HX ADMITTED FOR OBSERVATION WITH CHEST PAIN *cHEST PAIN - INTIALY TROPS NEG EKG NORMAL CXR NORMAL BUT POS FAMILY HX, DIABETES, AGE FOR STRESS TEST TOMORROW MONITOR ON TELE ASA DAILY PAIN CONTROL *DM - CHECK HBA1C PLACE ON ISS HOLD METFORMIN FOR NOW *DVT PROPHY - SQ HEPARIN Family Medical History Family Hx Cardiac Disorders: Father Family Hx Diabetes: Father Problem List - Problem (1) Chest pain Code(s): R07.9 - CHEST PAIN, UNSPECIFIED Qualifiers: Chest pain type: unspecified Qualified Code(s): R07.9 - Chest pain, u nspecified Visit type - Emergency Visit Emergency Visit: Yes Care time: The patient presented to the Emergency Department on the above date and was hospitalized for further evaluation of their emergent condition. - New Patient This patient is new to me today: Yes Date on this admission: 10/05/19 - Critical Care Critical Care patient: No
[2019-10-05 12:56] LABS: CHOLESTEROL 252 mg/dL (50-200); HDL CHOLESTEROL 32 mg/dL (40-60); LDL CHOLESTEROL (ONLY SJRH) 118 mg/dL (5-100); TRIGLYCERIDES 522 mg/dL (0-150)
[2019-10-05] MEDS ORDERED: HEPARIN NA (PORCINE) 5,000 UNITS/ML 1ML VIAL ONE ×2 (13:59→21:28)
--- NOTE | 2019-10-05 14:02 | EKG ---
Test Reason : Blood Pressure : / mmHG Vent. Rate : 069 BPM Atrial Rate : 069 BPM P-R Int : 154 ms QRS Dur : 102 ms QT Int : 380 ms P-R-T Axes : 065 064 052 degrees QTc Int : 407 ms NORMAL SINUS RHYTHM NORMAL ECG WHEN COMPARED WITH ECG OF 31-MAY-2016 12:58, NO SIGNIFICANT CHANGE WAS FOUND Confirmed by SIMONA ORLANDO MD ([id number]) on 10/05/2019 2:02:18 PM Referred By: Confirmed By:SIMONA ORLANDO MD
--- NOTE | 2019-10-05 14:02 | EKG ---
Test Reason : Blood Pressure : / mmHG Vent. Rate : 058 BPM Atrial Rate : 058 BPM P-R Int : 156 ms QRS Dur : 104 ms QT Int : 418 ms P-R-T Axes : 070 064 054 degrees QTc Int : 410 ms SINUS BRADYCARDIA OTHERWISE NORMAL ECG WHEN COMPARED WITH ECG OF 05-OCT-2019 06:52, NO SIGNIFICANT CHANGE WAS FOUND Confirmed by SIMONA ORLANDO MD ([id number]) on 10/05/2019 2:02:09 PM Referred By: Confirmed By:SIMONA ORLANDO MD
[2019-10-05] MEDS: HEPARIN NA (PORCINE) 5,000 UNITS/ML 1ML VIAL SQ SCH ×2 (14:04→21:57)
[2019-10-05] MEDS: ACETAMINOPHEN 325 MG TABLET (FP) PO PRN (15:29)
[2019-10-05] MEDS: INSULIN SLIDING SCALE (NOVOLOG) 1 VIAL SQ SCH ×2 (16:36→21:57)
[2019-10-06] MEDS: HEPARIN NA (PORCINE) 5,000 UNITS/ML 1ML VIAL SQ SCH ×2 (05:42→14:06)
[2019-10-06] MEDS: INSULIN SLIDING SCALE (NOVOLOG) 1 VIAL SQ SCH ×4 (06:13→17:11)
[2019-10-06 08:15] LABS: CHOLESTEROL 254 mg/dL (50-200); HDL CHOLESTEROL 31 mg/dL (40-60); LDL CHOLESTEROL (ONLY SJRH) 133 mg/dL (5-100); TRIGLYCERIDES 664 mg/dL (0-150)
[2019-10-06] MEDS ORDERED: FENOFIBRIC ACID 135 MG CAP PO SCH (10:00)
--- NOTE | 2019-10-06 11:25 | ECHO ---
Name: AMBER FLEMING Exam:Adult Echocardiogram Study Date: 10/06/2019 10:37 AM Age: 49 yrs MMode/2D Measurements & Calculations IVSd: 1.1 cm Ao root diam: 3.6 cm LVIDd: 4.7 cm LA dimension: 2.8 cm LVIDs: 3.2 cm LVPWd: 1.1 cm LVPWs: 1.4 cm EDV(Teich): 101.7 ml ESV(Teich): 42.1 ml LVOT diam: 2.3 cm RV S Gaudencio: 11.7 cm/sec Doppler Measurements & Calculations MV E max gaudencio: 79.5 cm/sec Ao V2 max: 116.4 cm/sec MV A max gaudencio: 51.8 cm/sec Ao max P.4 mmHg MV E/A: 1.5 DESHAWN(V,D): 3.5 cm2 MV dec time: 0.20 sec LV V1 max P.0 mmHg PA V2 max: 97.1 cm/sec LV V1 max: 99.7 cm/sec PA max P.8 mmHg PI end-d gaudencio: 99.8 cm/sec Med Peak E' Gaudencio: 6.8 cm/sec Med E/e': 11.7 Lat Peak E' Gaudencio: 9.4 cm/sec Lat E/e': 8.4 Left Ventricle The left ventricle is normal in size. There is borderline concentric left ventricular hypertrophy. Th e left ventricular ejection fraction is normal. Ejection Fraction = 55-60%. Left Ventricular Filling pattern is normal for age. Right Ventricle The right ventricle is normal in size and function. Atria Normal left and right atrial size and function. Mitral Valve The mitral valve leaflets appear normal. There is no evidence of stenosis, fluttering, or prolapse. T here is no mitral regurgitation noted. Tricuspid Valve The tricuspid valve is normal. No tricuspid regurgitation. Aortic Valve There is mild aortic sclerosis.;. No hemodynamically significant valvular aortic stenosis. No aortic regurgitation is present. Pulmonic Valve The pulmonic valve leaflets are thin and pliable; valve motion is normal. Mild pulmonic valvular regurgitation. Great Vessels The aortic root is normal size. Pericardium/Pleura There is no pericardial effusion. Interpretation Summary LV: normal size, borderline LVH,normal systolic and diastolic function, EF 55-60% RV: Normal Atria: Ramonita size Sclerotic aortic valve No significant valvular dysfunction. Pete Palacio 10/06/2019 11:25 AM
[2019-10-06] MEDS ORDERED: ASPIRIN 325 MG TABLET PO ONE (11:41)
--- NOTE | 2019-10-06 11:51 | PN ---
Progress Note (short form) - Note Progress Note: s: no cp sob palps dizzy Current Medications Generic Name Dose Route Start Last Admin Trade Name Freq PRN Reason Stop Dose Admin Acetaminophen 650 mg 10/05/19 15:17 10/05/19 15:29 Tylenol - PO 650 mg Q4H PRN Administration HEADACHE Fenofibric Acid 135 mg 10/06/19 10:00 Trilipix - PO DAILY EFRA Heparin Sodium (Porcine) 5,000 unit 10/05/19 14:00 10/06/19 05:42 Heparin - SQ 5,000 unit TID EFRA Administration Insulin Aspart 1 vial 10/05/19 16:30 10/06/19 06:13 Novolog Vial Sliding Scale - SQ Not Given ACHS [facility] Protocol Nitroglycerin 0.3 mg 10/05/19 11:44 Nitrostat - SL Q5M PRN FOR CHEST PAIN Vital Signs Period Temp Pulse Resp BP Sys/Iqbal Pulse Ox Last 24 Hr 97.6 F-98.8 F 58-75 15-18 115-125/62-89 98-100 Constitutional: Yes: No Distress, Anxious Eyes: Yes: Conjunctiva Clear Neck: Yes: Supple, Trachea Midline Respiratory: Yes: Regular, CTA Bilaterally Gastrointestinal: Yes: Normal Bowel Sounds, Soft Cardiovascular: Yes: Regular Rate and Rhythm JVD: No Carotid Bruit: No PMI: Non-Displaced Heart Sounds: Yes: S1, S2 (rrr, no m/r/g) Edema: No Peripheral Pulses WNL: Yes Neurological: Yes: Alert, Oriented CBC, BMP 10/05/19 07:00 10/05/19 07:00 tele: Echo: Pending Cath [facility] 01/2011 -Normal LM -< 30% RCA -LAD Mild diffuse dz -LCx mild diffuse dz Imaging - Results X-ray: Report Reviewed, Image Reviewed (No acute chest pathology) Assessment/Plan IMP: 49M with uncontrolled DM with several days of intermittent atypical CP, right a rm discomfort, sob and lightheadedness. While some of this may be a side effect of Metformin, risk factor profile warrants further risk stratification. REC: 1. no signs acs, telemetry benign 2. Echo in AM EF assessment 3. Plan for MIBI in AM 5. ASA daily 7. A1c and DM control as per primary team if echo and mibi benign then ok for dc from cardiac pov
[2019-10-06] MEDS: ACETAMINOPHEN 325 MG TABLET (FP) PO PRN ×2 (14:03→18:20)
[2019-10-06 14:22] VITALS: BP 113/68; PULSE 81; TEMP 98.5
== END 2019-10-06 19:00 | disposition home or self-care (01) ==
LOC: JER 06:36 → JERBED 09:05 → J4S 22:08
PROVIDERS: ADMIT Internal Medicine; ATTEND Internal Medicine
PROC: 3E023GC Introduction of Other Therapeutic Substance into Muscle, Percutaneous Approach (ICD-10-PCS; principal; 2019-10-05)
PROC: 3E033NZ Introduction of Analgesics, Hypnotics, Sedatives into Peripheral Vein, Percutaneous Approach (ICD-10-PCS; 2019-10-05)
PROC: 3E0337Z Introduction of Electrolytic and Water Balance Substance into Peripheral Vein, Percutaneous Approach (ICD-10-PCS; 2019-10-05)
DX: R07.9 Chest pain, unspecified (principal); J45.909 Unspecified asthma, uncomplicated; E11.9 Type 2 diabetes mellitus without complications; Z88.5 Allergy status to narcotic agent; Z29.9 Encounter for prophylactic measures, unspecified
CPT/HCPCS: 36415; 71045-TC-FY; 78452-TC; 80053; 80061; 82550; 82962; 83036; 83721; 83880; 84484; 85025; 85379; 85610; 85730; 93005; 93010; 93017; 93306-TC; 99285-25; A9502; G0378; J0131; J1644; U0003

== ENCOUNTER 2019-12-19 13:54 | Day surgery (SDC) | payer BC ==
--- OUTSIDE RECORDS SUMMARY | 2019-12-15 15:07 | XMS ---
:1970 [facility] Providers Name Role Phone Doug Agarwal Unavailable Doug Agarwal Unavailable Re-disclosure Warning The records that you are about to access may contain information from federally- assisted alcohol or drug abuse programs. If such information is present, then the following federally mandated warning applies: This information has been disclosed to you from records protected by federal confidentiality rules (42 CFR part 2). The federal rules prohibit you from making any further disclosure of this information unless further disclosure is expressly permitted by the written consent of the person to whom it pertains or as otherwise permitted by 42 CFR part 2. A general authorization for the release of medical or other information is NOT sufficient for this purpose. The Federal rules restrict any use of the information to criminally investigate or prosecute any alcohol or drug abuse patient.The records that you are about to access may contain highly sensitive health information, the redisclosure of which is protected by Article 27-F of the [facility] Public Health law. If you continue you may haveaccess to information: Regarding HIV / AIDS; Provided by facilities licensed or operated by the [facility] Office of Mental Health; or Provided by the [facility] Office for People With Developmental Disabilities. If such information is present, then the following [facility] mandated warning applies: This information has been disclosed to you from confidential records which are protected by state law. State law prohibits you from making any further disclosure of this information without the specific written consent of the person to whom it pertains, or as otherwise permitted by law. Any unauthorized further disclosure in violation of state law may result in a fine or senior living sentence or both. A general authorization for the release of medical or other information is NOT sufficient authorization for further disclosure. Allergies and Adverse Reactions Type Description Substance Reaction Status Data Source(s ) Drug allergy morphine Morphine Active [facility] ([facility], ) Drug allergy morphine Morphine Active [facility] ([facility], ) Encounters Encounter Providers Location Date Indications Data Source(s ) Attender: Doug 12/11/2019 [facility] ([facility] [place] 12:00:00 AM ED Medical, ) Office Attender: Doug Agarwal 12/01/2019 12:00:00 AM EDT [facility] ([facility], ) Office Attender: Doug Agarwal 12/01/2019 12:00:00 AM EDT [facility] ([facility], ) Office Insurance Providers Payer name Policy type Policy ID Covered Covered democrat's Policy P tamiko / Coverage democrat ID relationship to [employer] type matson EMPIRE [id number] PLAN ([facility] ) PPO [id number] SP [id number] Problems, Conditions, and Diagnoses Code Display Name Description Problem Type Effective Dates Data Source(s) M54.12 Radiculopathy, RADICULOPATHY, Problem 12/01/2019 [facility] ([facility] 12:00:00 AM [facility], ) M54.2 Cervicalgia CERVICALGIA Problem 12/01/2019 [facility] ([facility] 12:00:00 AM EDT [facility] ) M54.12 Radiculopathy, RADICULOPATHY, Problem 12/01/2019 [facility] (St cervical region [facility] 12:00:00 AM [facility], ) M54.2 Cervicalgia CERVICALGIA Problem 12/01/2019 [facility] ([facility] 12:00:00 AM EDT [facility], ) Surgeries/Procedures Procedure Description Date Indications Data Source(s) Documentation of current 12/11/2019 [facility] ([facility] medications (procedure) 12:00:00 AM EDT edical, ) PHYSICIAN TELEPHONE 12/11/2019 [facility] ( [facility] EVALUATION 5-10 MIN 12:00:00 AM EDT Medic sc, ) Documentation of current 12/01/2019 [facility] ([facility] medications (procedure) 12:00:00 AM EDT edical, ) Documentation of current 12/01/2019 [facility] ([facility] medications (procedure) 12:00:00 AM EDT edical, ) Documentation of current 12/01/2019 [facility] ([facility] medications (procedure) 12:00:00 AM EDT edical, ) Documentation of current 12/01/2019 [facility] ([facility] OUT[facility] NEW 12/01/2019 [facility] ([facility] MINUTES 12:00:00 AM EDT [facility], ) Documentation of current 12/01/2019 [facility] ([facility]procedure[facility] Documentation of current 12/01/2019 [facility] ([facility]procedure[facility] NEW 12/01/2019 [facility] ([facility] MINUTES 12:00:00 AM EDT [facility], ) Results ID Date Data Source [id number] 10/05/2019 09:00:00 AM EDT [facility] Name Value Range Interpretation Description Data Sup porting Code Source(s) Document(s ) SARS [facility] coronavirus 2 RNA This lab was ordered by [facility] and reported by [facility]. ID Date Data Source [id number] 10/01/2019 12:00:00 AM EDT [facility] Name Value Range Interpretation Code Description Data Ofe rce(s) Supporting Document(s ) 2019-nCoV [facility] RNA XXX NILO+probe- Imp This lab was ordered by [facility] and reported by [facility]. Procedure Social History Code Duration Value Status Description Data Source(s ) Smoking 12/14/2019 denies smoking completed denies smoking etoh M [facility]GEN ([facility] 12:00:00 AM EDT etoh illicit illicit drugs Me dical, [facility]) drugs Smoking 12/14/2019 Unknown if ever completed Unknown if ever [facility] ([facility] 12:00:00 AM EDT smoked smoked Medical, [facility]) Smoking 12/01/2019 denies smoking completed denies smoking etoh M [facility]GEN ([facility] 12:00:00 AM EDT etoh illicit illicit drugs Me dical, [facility]) drugs Smoking 12/01/2019 Unknown if ever completed Unknown if ever [facility] EN ([facility] 12:00:00 AM EDT smoked smoked Medical, [facility])
[2019-12-18 11:42] VITALS: BMI 29.5
--- NOTE | 2019-12-19 10:21 | HP ---
History & Physical Update - Physical Physical: No Change - Assessment Assessment: No Change - Plan Plan: No Change
--- OUTSIDE RECORDS SUMMARY | 2019-12-19 13:28 | XMS ---
:1970 Author Organization [facility] Care Team Providers Name Role Phone [...] is protected by Article 27-F of the [place] State Public Health law. If you continue you may haveaccess to information: Regarding HIV / AIDS; Provided by facilities licensed or operated by the [facility] Office of Mental Health; or Provided by the [facility] Office for People With Developmental Disabilities. If such information is present, then the following [facility] mandated warning applies: This information has been [...] law may result in a fine or alf sentence or both. A general authorization for the release of medical or other information is NOT sufficient authorization for further disclosure. Allergies and Adverse Reactions Type Description Substance Reaction Status Data Source(s ) Drug allergy morphine Morphine Active [facility] ([facility], ) Drug allergy morphine Morphine Active [facility] ([facility], ) Encounters Encounter Providers Location Date Indications Data Source(s ) Attender: Doug 12/11/2019 [facility] ([facility] 12:00:00 AM ED Medical, ) Office Attender: Doug Agarwal 12/01/2019 12:00:00 AM EDT [facility] [place] [place] Attender: Doug Agarwal 12/01/2019 12:00:00 AM EDT [facility] [place] [place] Insurance Providers Payer name Policy type Policy ID Covered Covered constitution party's Policy P tamiko / Coverage constitution party ID relationship to [employer] Inf ormation type matson PPO [id number] SP [id number] [place] [id number] PLAN ([facility] ) Problems, Conditions, and Diagnoses Code Display Name Description Problem Type Effective Dates Data Source(s) M54.12 Radiculopathy, RADICULOPATHY, Problem 12/01/2019 MED[facility] (St cervical region [facility]ERVICAL [facility] 12:00:00 AM [facility] [place], ) M54.2 Cervicalgia CERVICALGIA Problem 12/01/2019 MED[facility] (St 12:00:00 AM EDT [facility] [place], [place]uan, ) M54.12 Radiculopathy, RADICULOPATHY, Problem 12/01/2019 MED[facility] (St cervical region CERVICAL REGION 12:00:00 AM EDT [facility] [place], ) M54.2 Cervicalgia CERVICALGIA Problem 12/01/2019 MED[facility] (St 12:00:00 AM EDT [facility] [place], [place], ) Surgeries/Procedures Procedure Description Date Indications Data Source(s) Documentation of current 12/11/2019 MED GEN ([facility] PHYSICIAN TELEPHONE 12/11/2019 [facility] ( [facility] EVALUATION 5-10 MIN 12:00:00 AM EDT [facility], ) Documentation of current 12/01/2019 MED GEN ([facility] medications (procedure) 12:00:00 AM EDT [facility], ) Documentation of current 12/01/2019 MED GEN ([facility] medications (procedure) 12:00:00 AM EDT [facility], ) Documentation of current 12/01/2019 MED [facility] ([facility] medications (procedure) 12:00:00 AM EDT [facility], ) Documentation of current 12/01/2019 MED GEN ([facility] medications (procedure) 12:00:00 AM EDT [facility], ) OFFICE OUTPATIENT NEW 12/01/2019 MED [facility] ([facility] MINUTES 12:00:00 AM EDT [facility], ) Documentation of current 12/01/2019 MED GEN ([facility] medications (procedure) 12:00:00 AM EDT [facility], ) Documentation of current 12/01/2019 MED [facility] ([facility] medications (procedure) 12:00:00 AM EDT [facility], ) OFFICE OUTPATIENT NEW 12/01/2019 [facility] ([facility] MINUTES 12:00:00 AM EDT [facility], ) Results ID Date Data Source [id number] 12/15/2019 05:11:00 PM EDT [facility] Name Value Range Interpretation Description Data Sup porting Code Source(s) Document(s ) SARS [facility] coronavirus 2 RNA This lab was ordered by [facility] and reported by [facility]. ID Date Data Source [id number] 10/05/2019 09:00:00 AM EDT [facility] Name Value Range Interpretation Description Data Sup porting Code Source(s) Document(s ) SARS [facility] coronavirus 2 RNA This lab was ordered by [facility] and reported by [facility]. ID Date Data Source [id number] 10/01/2019 12:00:00 AM EDT [facility] Name Value Range Interpretation Code Description Data Ofe rce(s) Supporting Document(s ) 2019-nCoV [facility] RNA XXX NILO+probe- Imp This lab was ordered by [facility] and reported by [facility]. Procedure Social History Code Duration Value Status Description Data Source(s ) Smoking 12/14/2019 denies smoking completed denies smoking etoh M [facility]GEN ([facility] 12:00:00 AM EDT etoh illicit illicit drugs [facility], [facility]) drugs Smoking 12/14/2019 Unknown if ever completed Unknown if ever MEDG EN ([facility] 12:00:00 AM EDT smoked smoked Medical, [facility]) Smoking 12/01/2019 denies smoking completed denies smoking etoh M [facility] ([facility] 12:00:00 AM EDT etoh illicit illicit drugs [facility], [facility]) drugs Smoking 12/01/2019 Unknown if ever completed Unknown if ever [facility] ([facility] 12:00:00 AM EDT smoked smoked Medical, [facility])
--- NOTE | 2019-12-19 13:47 | HP ---
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 Kiser. PCP: Dr. Dale Alegre Cardiology: Dr. Enrique Ardon Ortho: Dr. Kiser Recent Travel: No PAST MEDICAL HISTORY: Coronary artery disease Asthma Hypertryglyceridemia PAST SURGICAL HISTORY: Appendectomy Tonsillectomy Left ankle repair Left inguinal hernia repair Social History: Smoking: not current smoker Alcohol: no Drugs: no Family History: Mother with CAD Allergies dulaglutide [From Trulicity] Allergy (Severe, Verified 12/18/19 11:44) Difficulty Breathing metformin Allergy (Severe, Verified 12/18/19 11:43) Difficulty Breathing morphine Allergy (Severe, Verified 12/18/19 11:44) CHEST PAIN DIFFICULTY BREATHING HOME MEDICATIONS: Home Medications Medication Instructions Recorded NK [No Known Home Medication] 12/18/19 REVIEW OF SYSTEMS CONSTITUTIONAL: Absent: fever, chills, diaphoresis, generalized weakness, malaise, loss of appetite, weight change HEENT: Absent: rhinorrhea, nasal congestion, throat pain, throat swelling, difficulty swallowing, mouth swelling, ear pain, eye pain, visual changes CARDIOVASCULAR: Absent: chest pain, syncope, palpitations, irregular heart rate, lightheadedness, peripheral edema RESPIRATORY: Absent: cough, shortness of breath, dyspnea with exertion, orthopnea, wheezing, stridor, hemoptysis GASTROINTESTINAL: Absent: abdominal pain, abdominal distension, nausea, vomiting, diarrhea, constipation, melena, hematochezia GENITOURINARY: Absent: dysuria, frequency, urgency, hesitancy, hematuria, flank pain, genital pain MUSCULOSKELETAL: Absent: myalgia, arthralgia, joint swelling, back pain, neck pain SKIN: Absent: rash, itching, pallor HEMATOLOGIC/IMMUNOLOGIC: Absent: easy bleeding, easy bruising, lymphadenopathy, frequent infections ENDOCRINE: Absent: unexplained weight gain, unexplained weight loss, heat intolerance, cold intolerance NEUROLOGIC: Absent: headache, focal weakness or paresthesias, dizziness, unsteady gait, seizure, mental status changes, bladder or bowel incontinence PSYCHIATRIC: Absent: anxiety, depression, suicidal or homicidal ideation, hallucinations. PHYSICAL EXAMINATION Vital Signs - 24 hr 12/19/19 09:45 Temperature 98.8 F Pulse Rate 70 Respiratory 18 Rate Blood Pressure 136/78 O2 Sat by Pulse 99 Oximetry (%) GENERAL: Sleepy but easily arousable, fully oriented, in no acute distress. HEAD: Normal with no signs of trauma. EYES: Pupils equal, round and reactive to light, extraocular movements intact, sclera anicteric, conjunctiva clear. No lid lag. LUNGS: Breath sounds equal, clear to auscultation bilaterally. No wheezes, and no crackles. No accessory muscle use. HEART: Regular rate and rhythm, normal S1 and S2 ABDOMEN: Soft, nontender, not distended RUE: right arm in sling, surgical dressing c/d/i, able to flex all fingers on right hand, 2+ radial pulse, cap refill <3 sec, warm, well-perfused LOWER EXTREMITIES: 2+ pulses, warm, well-perfused. No peripheral edema. NEUROLOGICAL: Cranial nerves II-XII intact. Normal speech. 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 S/P Right shoulder biceps tenodesis Subacromial decompression AC joint resection Arthroscopic debridement --POD #0 --perioperative antibiotics per surgery --pain management per anesthesia/surgery --RUE neuro checks q4h Coronary artery disease --non-obstructive, 2010 cath --stress 10/2019 no ischemia --on daily ASA, continue to hold perioperatively Asthma --on no home meds, stable Hypertriglyceridemia --on fenofibrate at home FEN Fluids: LR@75mL/hr Electrolytes: replete as indicated Nutrition: regular diet DVT prophylaxis: OOB, ambulation, SCDs Dispo: continues to require inpatient care. Full code. Family Medical History Family History: As Documented Visit type - Emergency Visit Emergency Visit: No - New Patient This patient is new to me today: Yes Date on this admission: 12/19/19 - Critical Care Critical Care patient: No
[~2019-12-19 13:54] MED LIST: BUPIVACAINE HCL/PF 0.5% (5MG/ML) 10 ML VIAL IJ ONE; BUPIVACAINE HCL/PF 0.5% (5MG/ML) 10 ML VIAL ONE; DEXAMETHASONE SOD PHOSPHATE 4 MG/1 ML VIAL ONE; KETOROLAC TROMETHAMINE 30 MG/1 ML VIAL ONE; LIDOCAINE HCL/PF 2% SDV 5ML VIAL ONE; MIDAZOLAM HCL 2 MG/2 ML SINGLE DOSE VIAL ONE; ONDANSETRON 4 MG/2 ML VIAL ONE; PROPOFOL 20 ML ONE; ROPIVACAINE HCL 0.5% 30ML VIAL ONE; ceFAZolin SODIUM 1 GM VIAL ONE
--- NOTE | 2019-12-19 13:54 | OPR ---
Date of Procedure: 12/19/2019 Procedure: Right Shoulder diagnostic arthroscopy, open biceps tenodesis, distal clavicle resection, subacromial decompression, and limited debridement. Preoperative Diagnoses: Right shoulder biceps tenosynovitis, distal clavicle osteolysis, and impingement Postoperative Diagnoses: Right shoulder biceps tenosynovitis, distal clavicle osteolysis, labrum tear, and impingement Surgeon: Sean Kiser DO Assistants: Thuan Mg DO Anesthesia: IV regional with interscalene nerve block Estimated Blood Loss: Minimal Drains: None Total IV Fluids: Per anesthesia record Specimens: Biceps tendon Complications: None Disposition: PACU Condition: Hemodynamically stable Indications: Mr. Hua presented to us with right shoulder pain and debilitation after conservative measures including NSAIDs, physical therapy, activity modification. He did not want any additional conservative intervention, including cortisone injections due to his medical history. Mr. Hua ultimately elected to proceed with surgical intervention after discussion of the risks, benefits, alternatives. We discussed risks including but not limited to, bleeding, pain, infection, scarring, damage to neurovascular structures, blood clots, pulmonary embolism, need for additional surgery, incomplete relief of pain, and incomplete return of function. He expressed understanding and wished to proceed. Mr. Hua underwent preoperative medical/cardio evaluation clearance and optimization prior to surgery. Surgeon's Narrative: Mr. Hua was identified in the preoperative area. The right shoulder was marked as the operative site and consent was completed and confirmed. He was given an interscalene block by the anesthesiology team. He was later transferred to the operating room and placed in typical beach chair position the operating room, with all bony prominences appropriately padded. The neck was in neutral alignment. A surgical time-out was performed identifying the correct patient, procedure, and site. Antibiotics were given within 1 hour prior to surgical incision. The upper extremity was prepped and draped in standard sterile fashion. Exam Under Anesthesia: Right Shoulder: FF: 170, ER @ side: 60, ER @ 90Abd: 90, IR @90Abd: 40 Diagnostic arthroscopy: We began the procedure with the standard posterolateral portal, entered the glenohumeral joint, and an anterior portal was made within the rotator cuff interval under direct visualization with the assistance of a spinal needle. A probe was used to assist with diagnostic arthroscopy and we visualized from both posteriorly and anteriorly. Evaluation of the glenohumeral joint showed mild to moderate synovitis anteriorly. The anterior and superior labrum was probed and shown to be mildy frayed with a tear anteriorly. There were no loose bodies in the inferior pouch. There was no HAGL lesion. The biceps tendon showed hyperemia and severe fraying. The subscapularis was found to be intact. The articular surface of the supraspinatus and infraspinatus showed to be intact. The articular surface of the teres minor tendon was intact. Evaluation of the subacromial space showed moderate bursitis. There was a moderate sized acromial spur anteriorly. The AC joint showed arthrosis. Arthroscopic limited debridement of the glenohumeral joint: We used a combination of the arthroscopic motorized shaver and radiofrequency device to perform a limited debridement inside the glenohumeral joint. The hyperemia, erythema, and synovitis of the joint and joint capsule was focally debrided. Synovitic fronds were thermally ablated. Labral fraying and degeneration was also resected and debrided to a stable edge. The biceps tendon long-head was released from its anchor attachment. Arthroscopic-assisted biceps tenodesis: We made a 2 cm incision along Melba's lines in the axillary fold. Sharp dissection was carried out down to the level of the pectoralis major. The plane between the pectoralis major and the short head of biceps tendon was developed bluntly down to the level of the humeral bone, where we identified the long head of biceps tendon and delivered it retrograde out of the wound. The underlying soft tissue was resected and the bone was frayed with a 1/4-inch osteotome. We then selected a 2.9 mm Carrillo and Nephew OsteoRaptor anchor and placed it high within the bicipital groove und erneath the pectoralis major tendon. The double loaded sutures of this anchor were then passed just proximal to the musculotendinous junction of the long head of biceps in an alternating simple versus lasso loop configuration. Tying these sutures down tenodesed the tendon onto the underlying frayed humeral bone. We used an arthroscopic knot pusher to get excellent knot fixation, and then arthroscopic monument stonecutter to cut the remaining length of the suture. The remaining length of the biceps tendon was resected. We confirmed our arthroscopic knots and position of the biceps tendon underneath the pectoralis major with the arthroscope. We thoroughly irrigated the wound. The wound was closed in buried, deep 2-0 Vicryl stitches, followed by a 3-0 Monocryl subcuticular stitch and then Dermabond skin glue. Arthroscopic subacromial decompression: The subacromial space was entered from posteriorly. Separate anterior and posterolateral portals were made for additional instrumentation and visualization. Through these portals, we visualized the rotator cuff pattern as noted above, and performed our subacromial decompression in a systematic fashion from anterior to posterior and from lateral to medial, removing the bursal tissue carefully. This was done with a radiofrequency device and motorized shaver. The undersurface of the acromion was skeletonized. There was no significant anterior inferior acromial spur. Arthroscopic AC joint resection: The ac joint space was narrowed, with arthritic changes bony sclerosis. We used the anterior and lateral portals for instrumentation. Soft tissue within the AC joint was removed with a motorized shaver and radiofrequency device. We resected the joint by using a barrel gloria 5.5 mm in diameter. 2-3 mm of the medial aspect of the acromion was burred to a flat surface and about 6-7 mm of the lateral end of the clavicle was similarly resected with the gloria. The surrounding osteophytes were also resected. The AC joint was stable upon completion of the distal clavicle excision. Approximately 1 cm of space was present between the acromion and clavicle after the resection. Wound closure: The wounds were closed with 3-0 Monocryl sutures in buried deep stitch followed by Steri-Strips. The shoulder was sterilely dressed, placed in an iceman device over a tristen to protect the skin. The arm was placed in a shoulder immobilizer. The patient was awoken from anesthesia and transferred to the PACU in stable condition. Postoperative rehabilitation: Biceps Tenodesis physical therapy protocol. He will follow up in our office in 10-14 days for a wound check. He will take ASA 325mg QD x 30 days. Sean Kiser DO
[2019-12-19] MEDS ORDERED: oxyCODONE HCL 5 MG TABLET PO PRN ×3 (13:59→15:21)
[2019-12-19] MEDS ORDERED: LACTATED RINGERS SOLUTION 1,000 ML IV SCH (14:00)
[2019-12-19] MEDS: ACETAMINOPHEN 325 MG TABLET (FP) PO SCH ×3 (14:22→20:13)
[2019-12-19] MEDS: traMADol HCL 50 MG TABLET PO PRN (18:33)
[2019-12-19] MEDS: ONDANSETRON 4 MG/2 ML VIAL IVPUSH PRN (18:34)
[2019-12-20] MEDS: traMADol HCL 50 MG TABLET PO PRN ×2 (00:27→11:05)
[2019-12-20] MEDS: ONDANSETRON 4 MG/2 ML VIAL IVPUSH PRN (00:29)
[2019-12-20] MEDS: ACETAMINOPHEN 325 MG TABLET (FP) PO SCH ×2 (01:15→08:19)
[2019-12-20 08:32] LABS: BASO % 0.4 % (0-2.0); EOS % 0.1 % (0-4.5); HEMATOCRIT 45.2 % (35.4-49); HEMOGLOBIN 15.1 GM/dl (11.7-16.9); LYMPH % 6.5 % (8-40); MCH 28.3 pg (25.7-33.7); MCHC 33.3 g/dl (32.0-35.9); MEAN CELL VOLUME 84.9 fl (80-96); MEAN PLT VOLUME 8.9 fl (7.5-11.1); MONO % 4.1 % (3.8-10.2); NEUT % 88.9 % (42.8-82.8); PLATELET COUNT 167 K/MM3 (134-434); RBC 5.33 M/mm3 (4.00-5.60); RDW 12.2 % (11.9-15.9); WHITE BLOOD COUNT 15.4 K/mm3 (4.0-10.8)
[2019-12-20 08:33] VITALS: BP 129/67; PULSE 84; TEMP 97.7
[2019-12-20 08:42] LABS: ALBUMIN 3.9 g/dl (3.4-5.0); BILIRUBIN,TOTAL 0.8 mg/dl (0.2-1); CALCIUM 8.9 mg/dl (8.5-10); POTASSIUM 4.4 mmol/L (3.5-5.1); TOT PROT 6.7 g/dl (6.4-8.2)
--- NOTE | 2019-12-20 08:57 | DS ---
Physical Exam: SUBJECTIVE: Patient seen and examined. Slept well, pain is controlled. OBJECTIVE: Vital Signs Period Temp Pulse Resp BP Sys/Iqbal Pulse Ox Last 24 Hr 97.7 F-98.8 F 57-84 16-18 107-136/61-79 95-100 PHYSICAL EXAM GENERAL: The patient is awake, alert, and fully oriented, in no acute distress. HEAD: Normal with no signs of trauma. EYES: PERRL, extraocular movements intact, sclera anicteric, conjunctiva clear. ENT: Ears normal, nares patent, oropharynx clear without exudates, moist mucous membranes. NECK: Trachea midline, full range of motion, supple. LUNGS: Breath sounds equal, clear to auscultation bilaterally, no wheezes, no crackles, no accessory muscle use. HEART: Regular rate and rhythm, S1, S2 without murmur, rub or gallop. ABDOMEN: Soft, nontender, nondistended, normoactive bowel sounds, no guarding, no rebound, no hepatosplenomegaly, no masses. EXTREMITIES: 2+ pulses, warm, well-perfused, no edema. Right shoulder dressing clean and dry. Movement and sensation of fingers intact. Some residual numbness proximally s/p block. NEUROLOGICAL: Cranial nerves II through XII grossly intact. Normal speech, gait not observed. PSYCH: Normal mood, normal affect. SKIN: Warm, dry, normal turgor, no rashes or lesions noted. LABS Laboratory Results - last 24 hr 12/19/19 12/20/19 12/20/19 10:37 07:30 07:30 WBC 15.4 H RBC 5.33 Hgb 15.1 Hct 45.2 MCV 84.9 MCH 28.3 MCHC 33.3 RDW 12.2 Plt Count 167 MPV 8.9 Absolute Neuts (auto) 13.7 Neutrophils % 88.9 H Lymphocytes % 6.5 L Monocytes % 4.1 Eosinophils % 0.1 Basophils % 0.4 Sodium 133 L Potassium 4.4 Chloride 102 Carbon Dioxide 25 Anion Gap 6 L BUN 14.0 Creatinine 1.0 Est GFR (CKD-EPI)AfAm 101.26 Est GFR (CKD-EPI)NonAf 87.37 POC Glucometer 115 Random Glucose 128 H Calcium 8.9 Magnesium 2.0 Total Bilirubin 0.8 AST 28 ALT 27 Alkaline Phosphatase 56 Total Protein 6.7 Albumin 3.9 HOSPITAL COURSE: This is a 49 year-old male with a PMH significant for CAD, asthma, hypertriglyceridemia, and 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 Kiser. Patient is recovering well. Plan for dc with PT, ortho followup 10-14 days, ASA for DVT ppx. Reviewed with Dr. Kiser. Followup instructions and return precautions discussed with patient. Date of Admission:12/19/19 Date of Discharge: 12/20/19 Minutes to complete discharge: 35 Discharge Summary Problems reviewed: Yes Reason For Visit: RIGHT SHOULDER BICEPS TENODESIS Condition: Stable - Instructions Diet, Activity, Other Instructions: -Take aspirin as prescribed to prevent blood clots -See physical therapist (prescription in packet) -Follow all detailed instructions in discharge folder -Follow up with Dr. Kiser at your scheduled appointment -Call Dr. Kiser's office or return here for any new or concerning symptoms, such as redness around the site or fever Referrals: Sean Kiser DO [Staff Physician] - (At pre-scheduled appointment (see discharge folder)) Disposition: HOME - Home Medications Comprehensive Discharge Medication List: Ambulatory Orders Aspirin Coated [Ecotrin -] 81 mg PO DAILY 12/19/19 Fenofibrate,Micronized [Fenofibrate] 134 mg PO DAILY 12/19/19 This patient is new to me today: Yes Date on this admission: 12/20/19 Emergency Visit: No Critical Care patient: No - Discharge Referral Referred to [facility] Med P.C.: No
--- NOTE | 2019-12-23 17:14 | PATH ---
Surgical Pathology Report Patient Name: AMBER FLEMING Med. Rec. #: [id number] /Age/Gender: 1970 (Age: 49) / M Account: [id number] Location: [facility] MED-SURG Taken: 12/19/2019 Received: 12/19/2019 Reported: 12/23/2019 Physicians: Sean Kiser MD Specimen(s) Received A: SHAVINGS RIGHT SHOULDER B: BICEP TENDON Clinical History Bicep tendosynovitis and distal clavicle ostiolysis Final Diagnosis A. RIGHT SHOULDER SHAVINGS: BLOOD AND SCANTY FIBROUS TISSUE. B. BICEP TENDON, EXCISION: TENDINOUS AND FIBROCARTILAGE TISSUE WITH FOCAL DEGENERATIVE AND REACTIVE CHANGE. Electronically Signed Kevin Trejo M.D. Gross Description A. Received in formalin labeled "right shoulder shavings," is a 0.3 x 0.3 x 0.1 cm aggregate of jennings-brown soft tissue fragments. The formalin is filtered and the specimen is entirely submitted in one cassette. B. Received in formalin labeled "bicep tendon," is a 7.7 x 1.5 x 0.4 cm jennings brown portion of fibrous tissue, consistent with a portion of tendon. Manager Steel sections are submitted in one cassette. /12/22/2019 saudi12/22/2019
== END 2019-12-20 12:45 | disposition home or self-care (01) ==
LOC: SUATTDRO 13:54 → FM/S 13:54 → FASUSAT 13:54
PROVIDERS: ATTEND Registered Nurse Emergency
PROC: 0RNJ4ZZ Release Right Shoulder Joint, Percutaneous Endoscopic Approach (ICD-10-PCS; 2019-12-19)
PROC: 0LS30ZZ Reposition Right Upper Arm Tendon, Open Approach (ICD-10-PCS; 2019-12-19)
PROC: 0PB94ZZ Excision of Right Clavicle, Percutaneous Endoscopic Approach (ICD-10-PCS; principal; 2019-12-19 10:30)
DX: M75.21 Bicipital tendinitis, right shoulder (principal); M89.511 Osteolysis, right shoulder; M75.41 Impingement syndrome of right shoulder
CPT/HCPCS: 36415; 80053; 82962; 83735; 85025; 88304-TC; 94760

== ENCOUNTER → 2020-02-23 | Day surgery (SDC) | payer BC ==
[2020-02-20 14:43] VITALS: BMI 29.5
[~2020-02-23] MED LIST changes: +BUPIVACAINE HCL/PF 0.25% (2.5MG/ML) 10 ML VIAL ONE; -BUPIVACAINE HCL/PF 0.5% (5MG/ML) 10 ML VIAL IJ ONE; -BUPIVACAINE HCL/PF 0.5% (5MG/ML) 10 ML VIAL ONE; +BUPIVACAINE HCL/PF 0.75% 10 ML VIAL ONE; -DEXAMETHASONE SOD PHOSPHATE 4 MG/1 ML VIAL ONE; +DEXAMETHASONE SOD PHOSPHATE/PF 10 MG/ML SDV ONE; -KETOROLAC TROMETHAMINE 30 MG/1 ML VIAL ONE; +LIDOCAINE HCL/PF 1% SDV 5ML VIAL ONE; -LIDOCAINE HCL/PF 2% SDV 5ML VIAL ONE; -MIDAZOLAM HCL 2 MG/2 ML SINGLE DOSE VIAL ONE; -ONDANSETRON 4 MG/2 ML VIAL ONE; -PROPOFOL 20 ML ONE; -ROPIVACAINE HCL 0.5% 30ML VIAL ONE; +TRIAMCINOLONE ACET 40MG/1ML VIAL ONE; -ceFAZolin SODIUM 1 GM VIAL ONE
== END | disposition home or self-care (01) ==
LOC: JASU-SURG 04:41
PROVIDERS: ATTEND Pain Medicine Pain Medicine
DX: Z53.8 Procedure and treatment not carried out for other reasons (principal)

== ENCOUNTER 2020-06-22 11:06 | Emergency (ER) | payer BC ==
[2020-06-22 11:37] VITALS: BP 138/90; PULSE 76; TEMP 97.8; BMI 31.7
== END 2020-06-22 12:47 | disposition home or self-care (01) ==
LOC: JER 11:06
DX: J20.9 Acute bronchitis, unspecified (principal); Z11.52 Encounter for screening for COVID-19
CPT/HCPCS: 71046-TC-FY; 99284-25; C9803; U0003

== ENCOUNTER 2020-09-25 13:43 | Observation (INO) | payer BC ==
[2020-09-25 15:20] LABS: BASO % 0.8 % (0-2.0); EOS % 2.7 % (0-4.5); HEMATOCRIT 40.6 % (35.4-49); HEMOGLOBIN 13.9 GM/dL (11.7-16.9); LYMPH % 15.6 % (8-40); MCH 28.1 pg (25.7-33.7); MCHC 34.1 g/dl (32.0-35.9); MEAN CELL VOLUME 82.3 fl (80-96); MEAN PLT VOLUME 8.9 fl (7.5-11.1); MONO % 8.6 % (3.8-10.2); NEUT % 72.3 % (42.8-82.8); PLATELET COUNT 184 10^3/uL (134-434); RBC 4.94 M/mm3 (4.00-5.60); RDW 13.7 % (11.9-15.9); WHITE BLOOD COUNT 6.8 K/mm3 (4.0-10.0)
[2020-09-25] MEDS ORDERED: ASPIRIN 81 MG CHEWABLE TABLETS PO ONE (15:29)
[2020-09-25 15:37] LABS: CHLORIDE 103 mmol/L (98-107); SODIUM 135 mmol/L (136-145)
[2020-09-25 15:40] LABS: ALBUMIN 3.8 g/dl (3.4-5.0); ANION GAP 7 MMOL/L (8-16); BLOOD UREA NITROGEN 10.8 mg/dL (7-18); CALCIUM 8.4 mg/dL (8.5-10.1); CO2 25 mmol/L (21-32); GLUCOSE,RANDOM 240 mg/dL (74-106)
[2020-09-25 15:43] LABS: CREATININE 1.2 mg/dL (0.55-1.3); SGOT/AST 22 U/L (15-37)
[2020-09-25 15:45] LABS: BILIRUBIN,TOTAL 0.3 mg/dL (0.2-1); TOT PROT 7.1 g/dl (6.4-8.2)
[2020-09-25 15:46] LABS: ALK PHOS 84 U/L (45-117)
[2020-09-25] MEDS ORDERED: ASPIRIN 81 MG CHEWABLE TABLETS ONE (16:02)
[2020-09-25 16:06] LABS: SGPT/ALT 40 U/L (13-61)
[2020-09-25] MEDS ORDERED: MELATONIN 5 MG TABLETS PO ONE (21:31)
[2020-09-25] MEDS ORDERED: MELATONIN 5 MG TABLETS ONE (23:31)
[2020-09-26] MEDS ORDERED: ACETAMINOPHEN 325 MG TABLET (FP) PO ONE (00:52)
[2020-09-26 03:27] VITALS: BMI 32.6
[2020-09-26 08:07] LABS: EOS % 3.3 % (0-4.5); HEMATOCRIT 43.8 % (35.4-49); HEMOGLOBIN 14.3 GM/dL (11.7-16.9); LYMPH % 23.4 % (8-40); MCH 27.4 pg (25.7-33.7); MCHC 32.5 g/dl (32.0-35.9); MEAN CELL VOLUME 84.3 fl (80-96); MEAN PLT VOLUME 9.3 fl (7.5-11.1); MONO % 8.1 % (3.8-10.2); NEUT % 64.2 % (42.8-82.8); PLATELET COUNT 192 10^3/uL (134-434); RDW 13.5 % (11.9-15.9); WHITE BLOOD COUNT 5.5 K/mm3 (4.0-10.0)
[2020-09-26 08:15] LABS: CHLORIDE 105 mmol/L (98-107); SODIUM 137 mmol/L (136-145)
[2020-09-26 08:19] LABS: ALBUMIN 3.9 g/dl (3.4-5.0); ANION GAP 8 MMOL/L (8-16); BLOOD UREA NITROGEN 12.2 mg/dL (7-18); CALCIUM 9.1 mg/dL (8.5-10.1); CO2 24 mmol/L (21-32); GLUCOSE,RANDOM 191 mg/dL (74-106); MAGNESIUM 2.2 mg/dL (1.8-2.4)
[2020-09-26 08:21] LABS: SGPT/ALT 37 U/L (13-61)
[2020-09-26 08:22] LABS: CREATININE 1.1 mg/dL (0.55-1.3); PHOSPHOROUS 3.6 mg/dL (2.5-4.9); SGOT/AST 20 U/L (15-37)
[2020-09-26 08:23] LABS: TOT PROT 7.1 g/dl (6.4-8.2)
[2020-09-26 08:25] LABS: ALK PHOS 73 U/L (45-117)
[2020-09-26 08:34] LABS: BILIRUBIN,TOTAL 0.8 mg/dL (0.2-1)
[2020-09-26 08:39] VITALS: BP 130/84; PULSE 68; TEMP 98.2
[2020-09-26] MEDS ORDERED: ENOXAPARIN NA (PORCINE) 40 MG/0.4 ML DISP.SYRIN SQ SCH (10:00)
[2020-09-27 07:40] LABS: CHOLESTEROL 275 mg/dL (50-200); TRIGLYCERIDES 743 mg/dL (0-150)
[2020-09-27 07:41] LABS: LDL CHOLESTEROL (ONLY SJRH) 95 mg/dL (5-100)
[2020-09-27 07:43] LABS: HDL CHOLESTEROL 32 mg/dL (40-60)
== END 2020-09-26 10:44 | disposition home or self-care (01) ==
LOC: JER 13:43 → INTOOBSV 16:51 → JERBED 16:51 → J4W 09-26 00:53
PROVIDERS: ADMIT Hospitalist; ATTEND Internal Medicine
DX: R07.89 Other chest pain (principal); E11.9 Type 2 diabetes mellitus without complications; E78.5 Hyperlipidemia, unspecified; G47.33 Obstructive sleep apnea (adult) (pediatric); I25.10 Atherosclerotic heart disease of native coronary artery without angina pectoris; I10 Essential (primary) hypertension; Z98.61 Coronary angioplasty status; K21.9 Gastro-esophageal reflux disease without esophagitis; Z98.890 Other specified postprocedural states; Z88.8 Allergy status to other drugs, medicaments and biological substances; Z88.5 Allergy status to narcotic agent
CPT/HCPCS: 36415; 71046-TC-FY; 80053; 80061; 82550; 82553; 82962; 83036; 83721; 83735; 84100; 84436; 84484; 85025; 93005; 93010; 99285-25; C9803; G0378; U0003; U0005

== ENCOUNTER 2021-12-16 00:02 | Emergency (ER) | payer BC ==
[2021-12-16 00:54] VITALS: BP 138/87; PULSE 78; RESP 20; TEMP 98.3; BMI 29.5
[2021-12-16] MEDS ORDERED: DIPHTH,PERTUSS(ACELL),TET 0.5 ML DISP.SYRIN IM ONE ×2 (01:59→02:46)
[2021-12-16] MEDS ORDERED: ACETAMINOPHEN 500 MG TABLET (FP) PO ONE (02:02)
[2021-12-16] MEDS ORDERED: ACETAMINOPHEN 325 MG TABLET (FP) ONE (02:46)
[2021-12-16] MEDS ORDERED: LIDOCAINE HCL 2% (50ML VIAL) SQ ONE (02:55)
[2021-12-16] MEDS ORDERED: LIDOCAINE HCL 2% (20ML MULTI-DOSE VIAL) ONE ×2 (02:56→02:59)
[2021-12-16] MEDS ORDERED: CEPHALEXIN MONOHYDRATE 500 MG CAPSULE (UD) PO ONE (03:10)
[2021-12-16] MEDS ORDERED: CEPHALEXIN MONOHYDRATE 500 MG CAPSULE (UD) ONE (03:33)
[2021-12-16] MEDS ORDERED: KETOROLAC TROMETHAMINE 30 MG/1 ML VIAL IM ONE (04:07)
[2021-12-16] MEDS ORDERED: KETOROLAC TROMETHAMINE 30 MG/1 ML VIAL ONE (04:09)
== END 2021-12-16 05:00 | disposition home or self-care (01) ==
LOC: JER 00:02
PROC: 3E0234Z Introduction of Serum, Toxoid and Vaccine into Muscle, Percutaneous Approach (ICD-10-PCS; principal; 2021-12-16)
PROC: 3E0233Z Introduction of Anti-inflammatory into Muscle, Percutaneous Approach (ICD-10-PCS; 2021-12-16)
DX: S90.212A Contusion of left great toe with damage to nail, initial encounter (principal); Y99.9 Unspecified external cause status
CPT/HCPCS: 73660-TC-LT-FY; 90715; 99284-25

== ENCOUNTER 2022-01-29 16:57 | Emergency (ER) | payer BC ==
[2022-01-29 17:04] VITALS: BP 120/72; PULSE 86; RESP 18; TEMP 97.8; BMI 29.5
[2022-01-29] MEDS ORDERED: KETOROLAC TROMETHAMINE 30 MG/1 ML VIAL IVPUSH ONE (18:27)
[2022-01-29] MEDS ORDERED: KETOROLAC TROMETHAMINE 30 MG/1 ML VIAL ONE (18:45)
[2022-01-29 18:56] LABS: BASO % 0.4 % (0-2.0); EOS % 1.2 % (0-4.5); HEMATOCRIT 51.1 % (35.4-49); HEMOGLOBIN 16.9 GM/dL (11.7-16.9); LYMPH % 16.7 % (8-40); MCH 27.7 pg (25.7-33.7); MEAN CELL VOLUME 83.8 fl (80-96); MEAN PLT VOLUME 8.3 fl (7.5-11.1); MONO % 7.6 % (3.8-10.2); NEUT % 74.1 % (42.8-82.8); PLATELET COUNT 228 10^3/uL (134-434); RDW 14.1 % (11.9-15.9); URINE APPEARANCE CLEAR; URINE BILIRUBIN NEGATIVE (NEGATIVE); URINE COLOR YELLOW; URINE GLUCOSE (UA) 3+ (NEGATIVE); URINE KETONE TRACE (NEGATIVE); URINE LEUK ESTERASE NEGATIVE (NEGATIVE); URINE NITRITE NEGATIVE (NEGATIVE); URINE PROTEIN NEGATIVE (NEGATIVE); URINE UROBILINOGEN 0.2 mg/dL (0.2-1.0); WHITE BLOOD COUNT 8.7 K/mm3 (4.0-10.0)
[2022-01-29 19:19] LABS: CALCIUM 9.4 mg/dL (8.5-10.1)
[2022-01-29 19:20] LABS: ALBUMIN 4.4 g/dl (3.4-5.0); BLOOD UREA NITROGEN 13.8 mg/dL (7-18)
[2022-01-29 19:23] LABS: CREATININE 1.3 mg/dL (0.55-1.3)
[2022-01-29 19:24] LABS: BILIRUBIN,TOTAL 0.6 mg/dL (0.2-1)
== END 2022-01-29 22:51 | disposition home or self-care (01) ==
LOC: JER 16:57
PROC: 3E0233Z Introduction of Anti-inflammatory into Muscle, Percutaneous Approach (ICD-10-PCS; principal; 2022-01-29)
DX: R10.32 Left lower quadrant pain (principal)
CPT/HCPCS: 36415; 74177-TC; 80053; 81003; 83690; 84484; 85025; 87086; 93005; 93010; 99285-25; Q9967

== ENCOUNTER 2022-04-05 04:08 | Day surgery (SDC) | payer BC ==
[2022-04-05] MEDS ORDERED: DEXAMETHASONE SOD PHOSPHATE 4 MG/1 ML VIAL ONE (13:38)
[2022-04-05] MEDS ORDERED: ONDANSETRON 4 MG/2 ML VIAL ONE (13:38)
[2022-04-05] MEDS ORDERED: FENTANYL CITRATE/PF 50 MCG/ML VIAL ONE ×5 (13:38→16:14)
[2022-04-05] MEDS ORDERED: PROPOFOL 20 ML ONE (13:38)
[2022-04-05] MEDS ORDERED: MIDAZOLAM HCL 2 MG/2 ML SINGLE DOSE VIAL ONE ×2 (13:38→14:01)
[2022-04-05] MEDS ORDERED: LIDOCAINE HCL/PF 2% SDV 5ML VIAL ONE (13:38)
[2022-04-05] MEDS ORDERED: ceFAZolin SODIUM 1 GM VIAL IVPB ONE (14:16)
[2022-04-05] MEDS ORDERED: ceFAZolin SODIUM 1 GM VIAL ONE (14:16)
[2022-04-05] MEDS ORDERED: IOHEXOL 300 MG/ML INFUS..BTL IV ONE (14:36)
[2022-04-05] MEDS ORDERED: ONDANSETRON 4 MG/2 ML VIAL IVPUSH PRN (15:31)
[2022-04-05] MEDS ORDERED: ACETAMINOPHEN INJECTION 100 ML IVPB ONE (15:52)
[2022-04-05] MEDS ORDERED: ACETAMINOPHEN 1000 MG/100 ML BAG IVPB ONE ×2 (16:00→16:04)
[2022-04-05] MEDS ORDERED: oxyCODONE HCL 5 MG TABLET PO PRN (16:04)
[2022-04-05] MEDS ORDERED: oxyCODONE HCL 5 MG TABLET PO ONE (16:07)
[2022-04-05] MEDS ORDERED: HYDROmorphone HCl 2 MG/ML VIAL IVPUSH PRN ×2 (16:44→16:45)
[2022-04-05] MEDS ORDERED: HYDROmorphone HCl 2 MG/ML VIAL IVPUSH ONE ×2 (16:49)
[2022-04-05] MEDS ORDERED: PROMETHAZINE HCL 25 MG/1 ML VIAL ONE (17:15)
[2022-04-05] MEDS ORDERED: PROMETHAZINE HCL 25 MG/1 ML VIAL IVPB ONE (17:15)
[2022-04-05] MEDS ORDERED: PROMETHAZINE HCL 25 MG/1 ML VIAL IVPUSH ONE (17:24)
[2022-04-05 18:32] VITALS: RESP 18
[2022-04-05 19:28] VITALS: BP 142/85; PULSE 80; TEMP 97.3
== END 2022-04-05 20:00 | disposition home or self-care (01) ==
LOC: JASU-SURG 04:08
PROVIDERS: ATTEND Urology
PROC: 0T778DZ Dilation of Left Ureter with Intraluminal Device, Via Natural or Artificial Opening Endoscopic (ICD-10-PCS; principal; 2022-04-05 12:00)
DX: N13.0 Hydronephrosis with ureteropelvic junction obstruction (principal)
CPT/HCPCS: 76000-TC-FY; 82962; 87086; 88108; 94760; C1758; C2617

== ENCOUNTER 2022-04-10 16:35 | Inpatient (IN) | payer BC ==
[2022-04-10] MEDS ORDERED: HYDROmorphone HCl 2 MG/ML VIAL ONE (21:01)
[2022-04-10] MEDS ORDERED: HYDROmorphone HCL CARPU-JECT 2 MG/1 ML DISP.SYRIN IVPUSH ONE (21:01)
[2022-04-10] MEDS ORDERED: ONDANSETRON *ODT* 4 MG TABLET ONE (21:08)
[2022-04-10 21:21] LABS: BASO % 0.6 % (0-2.0); EOS % 2.4 % (0-4.5); HEMOGLOBIN 16.8 GM/dL (11.7-16.9); LYMPH % 15.6 % (8-40); MCH 27.5 pg (25.7-33.7); MCHC 32.4 g/dl (32.0-35.9); MEAN CELL VOLUME 84.9 fl (80-96); MEAN PLT VOLUME 8.6 fl (7.5-11.1); MONO % 7.8 % (3.8-10.2); NEUT % 73.6 % (42.8-82.8); PLATELET COUNT 261 10^3/uL (134-434); RBC 6.13 M/mm3 (4.00-5.60); RDW 13.8 % (11.9-15.9); WHITE BLOOD COUNT 10.2 K/mm3 (4.0-10.0)
[2022-04-10] MEDS ORDERED: ONDANSETRON *ODT* 4 MG TABLET SL ONE (21:22)
[2022-04-10 21:27] LABS: INR 1.1 (0.83-1.09); PROTHROMBIN TIME (PATIENT) 12.7 SEC (9.7-13.0)
[2022-04-10 21:30] LABS: ACTIVATED PTT 29.2 SECONDS (25.2-36.5)
[2022-04-10 21:38] LABS: CALCIUM 9.3 mg/dL (8.5-10.1)
[2022-04-10 21:39] LABS: ALBUMIN 4.1 g/dl (3.4-5.0); BLOOD UREA NITROGEN 19.5 mg/dL (7-18)
[2022-04-10 21:41] LABS: CREATININE 1.6 mg/dL (0.55-1.3)
[2022-04-10 21:43] LABS: BILIRUBIN,TOTAL 0.6 mg/dL (0.2-1)
[2022-04-10] MEDS ORDERED: SODIUM CHLORIDE 1,000 ML IV STA (22:17)
[2022-04-11] MEDS ORDERED: LACTATED RINGERS SOLUTION 1000 ML INFUS.BAG IV ONE (01:17)
[2022-04-11] MEDS ORDERED: HYDROmorphone HCL CARPU-JECT 2 MG/1 ML DISP.SYRIN IVPUSH ONE (01:30)
[2022-04-11 01:45] LABS: EPI CELLS 2 /uL (0-25.1); HYALINE CASTS 3 /uL (0-3.1); PH,URINE 5.5 (5.0-8.0); URINE APPEARANCE TURBID; URINE BILIRUBIN NEGATIVE (NEGATIVE); URINE COLOR ORANGE; URINE GLUCOSE (UA) TRACE (NEGATIVE); URINE KETONE NEGATIVE (NEGATIVE); URINE LEUK ESTERASE 2+ (NEGATIVE); URINE NITRITE NEGATIVE (NEGATIVE); URINE PROTEIN 3+ (NEGATIVE); URINE WBC 559 /uL (0-25.8)
[2022-04-11] MEDS ORDERED: CEFEPIME HCL/D5W 1 GM/50 ML BAG IVPB ONE (03:17)
[2022-04-11] MEDS ORDERED: CEFEPIME 1 GM/100 ML BAG IVPB ONE (03:40)
[2022-04-11] MEDS ORDERED: HYDROmorphone HCl 2 MG/ML VIAL ONE (05:10)
[2022-04-11] MEDS ORDERED: CEFTRIAXONE 1 GM in DEXTROSE 5%-WATER - 50 ML IVPB SCH (10:00)
[2022-04-11] MEDS ORDERED: ACETAMINOPHEN 325 MG TABLET (FP) PO ONE (10:00)
[2022-04-11] MEDS: INSULIN SLIDING SCALE (NOVOLOG) 1 VIAL SQ SCH ×4 (11:20→22:59)
[2022-04-11] MEDS ORDERED: CEFTRIAXONE 1 GM/50 ML BAG ONE (11:28)
[2022-04-11] MEDS ORDERED: ACETAMINOPHEN INJECTION 100 ML IVPB ONE ×2 (11:28→17:07)
[2022-04-11] MEDS: DEXTROSE 5%-0.45% SALINE 1,000 ML IV SCH (11:31)
[2022-04-11] MEDS: ACETAMINOPHEN 1000 MG/100 ML BAG IVPB PRN ×2 (11:36→17:20)
[2022-04-11 11:47] LABS: BASO % 0.6 % (0-2.0); EOS % 2.5 % (0-4.5); HEMATOCRIT 46.8 % (35.4-49); HEMOGLOBIN 15.3 GM/dL (11.7-16.9); LYMPH % 11.2 % (8-40); MCH 27.5 pg (25.7-33.7); MCHC 32.6 g/dl (32.0-35.9); MEAN CELL VOLUME 84.4 fl (80-96); MEAN PLT VOLUME 8.5 fl (7.5-11.1); NEUT % 77.7 % (42.8-82.8); PLATELET COUNT 209 10^3/uL (134-434); RBC 5.55 M/mm3 (4.00-5.60); RDW 13.8 % (11.9-15.9); WHITE BLOOD COUNT 7.5 K/mm3 (4.0-10.0)
[2022-04-11] MEDS: HEPARIN NA (PORCINE) 5,000 UNITS/ML 1ML VIAL SQ SCH ×2 (12:00→22:49)
[2022-04-11 13:00] LABS: ALBUMIN 3.4 g/dl (3.4-5.0); BLOOD UREA NITROGEN 16.8 mg/dL (7-18); CALCIUM 8.6 mg/dL (8.5-10.1)
[2022-04-11 13:03] LABS: CREATININE 1.2 mg/dL (0.55-1.3)
[2022-04-11 13:04] LABS: BILIRUBIN,TOTAL 0.8 mg/dL (0.2-1); TOT PROT 6.5 g/dl (6.4-8.2)
[2022-04-11] MEDS ORDERED: KETOROLAC TROMETHAMINE 30 MG/1 ML VIAL IVPUSH PRN (21:44)
[2022-04-11] MEDS ORDERED: ATORVASTATIN CA 10 MG TABLET (FP) ONE (22:35)
[2022-04-11] MEDS ORDERED: KETOROLAC TROMETHAMINE 30 MG/1 ML VIAL ONE (22:36)
[2022-04-11] MEDS ORDERED: HEPARIN NA (PORCINE) 5,000 UNITS/ML 1ML VIAL ONE (22:36)
[2022-04-11] MEDS: ATORVASTATIN CA 10 MG TABLET (FP) PO SCH (22:49)
[2022-04-12] MEDS: PIPERACILLIN/TAZOB 3.375 GM 3.375 GM in DEXTROSE 5%-WATER - 50 ML IVPB SCH ×2 (02:30→10:14)
[2022-04-12] MEDS: INSULIN SLIDING SCALE (NOVOLOG) 1 VIAL SQ SCH ×4 (10:12→23:31)
[2022-04-12] MEDS: DEXTROSE 5%-0.45% SALINE 1,000 ML IV SCH (10:12)
[2022-04-12] MEDS ORDERED: INSULIN (NOVOLOG) ASPART 100 UNITS/ML 10ML VIAL ONE (10:26)
[2022-04-12] MEDS: HEPARIN NA (PORCINE) 5,000 UNITS/ML 1ML VIAL SQ SCH ×2 (10:29→21:10)
[2022-04-12] MEDS ORDERED: CEFTRIAXONE 1 GM in DEXTROSE 5%-WATER - 50 ML IVPB SCH (12:30)
[2022-04-12] MEDS: ONDANSETRON 4 MG/2 ML VIAL IVPUSH PRN ×2 (15:14→23:50)
[2022-04-12 19:16] VITALS: RESP 18; BMI 31.4
[2022-04-12] MEDS: PANTOPRAZOLE 40 MG TABLET PO SCH (20:30)
[2022-04-12] MEDS: ATORVASTATIN CA 10 MG TABLET (FP) PO SCH (21:10)
[2022-04-12] MEDS: ACETAMINOPHEN 1000 MG/100 ML BAG IVPB PRN (23:34)
[2022-04-13] MEDS: INSULIN SLIDING SCALE (NOVOLOG) 1 VIAL SQ SCH ×2 (06:09→11:51)
[2022-04-13] MEDS: PANTOPRAZOLE 40 MG TABLET PO SCH (09:16)
[2022-04-13] MEDS: HEPARIN NA (PORCINE) 5,000 UNITS/ML 1ML VIAL SQ SCH (09:16)
[2022-04-13] MEDS: DEXTROSE 5%-0.45% SALINE 1,000 ML IV SCH ×2 (09:16→13:12)
[2022-04-13] MEDS: ONDANSETRON 4 MG/2 ML VIAL IVPUSH PRN (13:05)
[2022-04-13] MEDS: ACETAMINOPHEN 1000 MG/100 ML BAG IVPB PRN (13:06)
[2022-04-13 14:19] VITALS: PULSE 68
[2022-04-13 14:38] VITALS: BP 132/89; TEMP 97.7
== END 2022-04-13 16:47 | disposition home or self-care (01) | DRG 683 ==
LOC: JER 16:35 → JERBED 04-11 01:28 → OBSVTOIN 04-11 09:46 → J6S 04-12 05:48
PROVIDERS: ADMIT Internal Medicine; ATTEND Internal Medicine
DX: N17.9 Acute kidney failure, unspecified (principal); N39.0 Urinary tract infection, site not specified; E78.5 Hyperlipidemia, unspecified; I25.10 Atherosclerotic heart disease of native coronary artery without angina pectoris; E11.9 Type 2 diabetes mellitus without complications; N20.0 Calculus of kidney; K59.00 Constipation, unspecified; R11.2 Nausea with vomiting, unspecified; R31.9 Hematuria, unspecified
CPT/HCPCS: 0241U-QW; 36415; 71045-TC-FY; 74176-TC; 76775-TC; 80053; 81003; 82436; 82570; 82962; 83690; 84133; 84300; 84484; 85025; 85610; 85730; 87086; 93005; 93010; 93971; 99285-25; G0378; J1644; Q0162

== ENCOUNTER 2022-04-18 04:06 | Day surgery (SDC) | payer BC ==
[2022-04-18 08:04] VITALS: BMI 29.5
[2022-04-18] MEDS ORDERED: PROPOFOL 40 ML ONE (14:05)
[2022-04-18] MEDS ORDERED: MIDAZOLAM HCL 2 MG/2 ML SINGLE DOSE VIAL ONE (14:07)
[2022-04-18] MEDS ORDERED: ONDANSETRON 4 MG/2 ML VIAL IVPUSH PRN (14:13)
[2022-04-18] MEDS ORDERED: LACTATED RINGERS SOLUTION 1,000 ML IV SCH (14:15)
[2022-04-18] MEDS ORDERED: ceFAZolin SODIUM 1 GM VIAL IVPB ONE (14:41)
[2022-04-18] MEDS ORDERED: CEFTRIAXONE 1 GM in DEXTROSE 5%-WATER - 50 ML IVPB ONE (15:27)
[2022-04-18] MEDS ORDERED: ACETAMINOPHEN 325 MG TABLET (FP) PO PRN ×2 (15:45)
[2022-04-18] MEDS ORDERED: HYDROmorphone HCl 2 MG/ML VIAL IVPUSH ONE ×2 (15:45→16:05)
[2022-04-18] MEDS ORDERED: oxyCODONE HCL 5 MG TABLET PO PRN ×2 (15:45)
[2022-04-18] MEDS ORDERED: ACETAMINOPHEN 1000 MG/100 ML BAG IVPB ONE (15:45)
[2022-04-18] MEDS ORDERED: HYDROmorphone HCl 2 MG/ML VIAL ONE (15:50)
[2022-04-18] MEDS ORDERED: ALBUTEROL SO4 HFA INHALER IH ONE (15:58)
[2022-04-18] MEDS ORDERED: ACETAMINOPHEN INJECTION 100 ML IVPB ONE (15:58)
[2022-04-18] MEDS ORDERED: HYDROmorphone HCL CARPU-JECT 2 MG/1 ML DISP.SYRIN IVPUSH ONE (16:05)
[2022-04-18] MEDS ORDERED: PROMETHAZINE HCL 25 MG/1 ML VIAL IVPUSH PRN (16:09)
[2022-04-18] MEDS ORDERED: PROMETHAZINE HCL 25 MG/1 ML VIAL ONE (17:41)
[2022-04-18] MEDS ORDERED: ceFAZolin SODIUM 1 GM VIAL ONE (17:42)
[2022-04-19] MEDS: HYDROmorphone HCl 2 MG/ML VIAL IM PRN ×3 (03:58→18:04)
[2022-04-19] MEDS: DOCUSATE SODIUM 100 MG CAPSULE (FP) PO SCH ×2 (06:47→23:02)
[2022-04-20 09:55] VITALS: BP 125/74; PULSE 76; RESP 17; TEMP 97.4
== END 2022-04-20 12:28 | disposition home or self-care (01) ==
LOC: JASU-SURG 04:06 → JASUSAT 04:06 → J7W 20:30 → JASUSAT 04-20 12:28
PROVIDERS: ATTEND Urology
PROC: BT1FYZZ Fluoroscopy of Left Kidney, Ureter and Bladder using Other Contrast (ICD-10-PCS; 2022-04-18)
PROC: 0TP98DZ Removal of Intraluminal Device from Ureter, Via Natural or Artificial Opening Endoscopic (ICD-10-PCS; principal; 2022-04-18 12:00)
DX: Z87.442 Personal history of urinary calculi (principal); N32.89 Other specified disorders of bladder
CPT/HCPCS: 76000-TC-FY; 82962; 87086; 88108; 94760; C1758; C9803-CS; U0003; U0005

== ENCOUNTER 2023-02-09 22:11 | Emergency (ER) | payer BC ==
[2023-02-09 22:16] VITALS: BMI 31.5
[2023-02-09] MEDS ORDERED: ACETAMINOPHEN 325 MG TABLET (FP) PO ONE (22:35)
[2023-02-09] MEDS ORDERED: IBUPROFEN 600 MG TABLET (FP) PO ONE ×2 (22:35→22:36)
[2023-02-09] MEDS ORDERED: ACETAMINOPHEN 325 MG TABLET (FP) ONE (22:36)
[2023-02-09 22:41] VITALS: BP 142/91; PULSE 116; RESP 18; TEMP 100.2
== END 2023-02-09 23:30 | disposition home or self-care (01) ==
LOC: FER 22:11
DX: J06.9 Acute upper respiratory infection, unspecified (principal); Z20.822 Contact with and (suspected) exposure to COVID-19
CPT/HCPCS: 0241U-QW; 71046-TC-FY; 99284-25

== ENCOUNTER 2023-07-26 12:04 | Observation (INO) | payer BC ==
[2023-07-26 13:24] LABS: BASO % 1.2 % (0-2.0); EOS % 1.3 % (0-4.5); HEMATOCRIT 49.4 % (35.4-49); MCH 27.7 pg (25.7-33.7); MCHC 32.5 g/dl (32.0-35.9); MEAN CELL VOLUME 85.2 fl (80-96); MEAN PLT VOLUME 8.9 fl (7.5-11.1); MONO % 9.1 % (3.8-10.2); NEUT % 72.4 % (42.8-82.8); PLATELET COUNT 202 10^3/uL (134-434); RDW 13.7 % (11.9-15.9); WHITE BLOOD COUNT 6.7 K/mm3 (4.0-10.0)
[2023-07-26 13:27] LABS: PH,URINE 5.5 (5.0-8.0); URINE APPEARANCE CLEAR; URINE BILIRUBIN NEGATIVE (NEGATIVE); URINE COLOR YELLOW; URINE GLUCOSE (UA) 3+ (NEGATIVE); URINE KETONE NEGATIVE (NEGATIVE); URINE LEUK ESTERASE NEGATIVE (NEGATIVE); URINE NITRITE NEGATIVE (NEGATIVE); URINE PROTEIN NEGATIVE (NEGATIVE); URINE UROBILINOGEN 0.2 mg/dL (0.2-1.0)
[2023-07-26 13:34] LABS: INR 0.95 (0.83-1.09); PROTHROMBIN TIME (PATIENT) 10.8 SEC (9.7-13.0)
[2023-07-26 13:37] LABS: ACTIVATED PTT 28.4 SECONDS (25.2-36.5)
[2023-07-26] MEDS ORDERED: ACETAMINOPHEN INJECTION 100 ML IVPB ONE (13:43)
[2023-07-26] MEDS: ACETAMINOPHEN 1000 MG/100 ML BAG IVPB ONE (13:51)
[2023-07-26 13:58] LABS: POTASSIUM 4.1 mmol/L (3.5-5.1)
[2023-07-26 14:00] LABS: CALCIUM 9.3 mg/dL (8.5-10.1)
[2023-07-26 14:01] LABS: BLOOD UREA NITROGEN 13.1 mg/dL (7-18)
[2023-07-26 14:04] LABS: CREATININE 1.2 mg/dL (0.55-1.3)
[2023-07-26 14:06] LABS: BILIRUBIN,TOTAL 0.5 mg/dL (0.2-1); TOT PROT 7.8 g/dl (6.4-8.2)
[2023-07-26] MEDS: PANTOPRAZOLE 40 MG TABLET PO SCH (19:52)
[2023-07-26] MEDS: ACETAMINOPHEN 1000 MG/100 ML BAG IVPB PRN (20:15)
[2023-07-26 20:23] VITALS: BMI 29.9
[2023-07-26] MEDS: BUDESONIDE/FORMOTEROL FUMARATE 160-4.5 MCG (10.3 GM INHALER) IH SCH (21:13)
[2023-07-26] MEDS ORDERED: INSULIN (NOVOLOG) ASPART 100 UNITS/ML 10ML VIAL ONE (21:17)
[2023-07-26] MEDS: INSULIN ASPART SLIDING SCALE (NOVOLOG) 1 VIAL SQ SCH (21:24)
[2023-07-27 05:41] VITALS: RESP 18
[2023-07-27 06:46] LABS: BASO % 0.8 % (0-2.0); EOS % 2.3 % (0-4.5); HEMATOCRIT 54.5 % (35.4-49); HEMOGLOBIN 17.7 GM/dL (11.7-16.9); LYMPH % 20.7 % (8-40); MCH 27.7 pg (25.7-33.7); MCHC 32.5 g/dl (32.0-35.9); MEAN CELL VOLUME 85.2 fl (80-96); MEAN PLT VOLUME 9.1 fl (7.5-11.1); MONO % 9.2 % (3.8-10.2); PLATELET COUNT 196 10^3/uL (134-434); RDW 13.7 % (11.9-15.9); WHITE BLOOD COUNT 7.3 K/mm3 (4.0-10.0)
[2023-07-27 07:01] LABS: POTASSIUM 4.2 mmol/L (3.5-5.1)
[2023-07-27 07:05] LABS: ALBUMIN 4.2 g/dl (3.4-5.0); BLOOD UREA NITROGEN 13.7 mg/dL (7-18); CALCIUM 9.6 mg/dL (8.5-10.1)
[2023-07-27 07:09] LABS: CREATININE 1.1 mg/dL (0.55-1.3)
[2023-07-27 07:10] LABS: BILIRUBIN,TOTAL 0.9 mg/dL (0.2-1)
[2023-07-27] MEDS: ASPIRIN 81 MG CHEWABLE TABLETS PO SCH (11:57)
[2023-07-27 15:32] VITALS: BP 117/74; PULSE 69; TEMP 96
== END 2023-07-27 16:52 | disposition home or self-care (01) ==
LOC: JER 12:04 → UNDOADMOB 14:32 → JERBED 14:32 → INTOOBSV 14:32 → J4W 18:52 → JERBED 18:52 → J4W 07-27 10:51
PROVIDERS: ADMIT Internal Medicine; ATTEND Internal Medicine
PROC: 3E033NZ Introduction of Analgesics, Hypnotics, Sedatives into Peripheral Vein, Percutaneous Approach (ICD-10-PCS; principal; 2023-07-27)
PROC: 3E013VG Introduction of Insulin into Subcutaneous Tissue, Percutaneous Approach (ICD-10-PCS; 2023-07-27)
DX: I25.10 Atherosclerotic heart disease of native coronary artery without angina pectoris (principal); E78.5 Hyperlipidemia, unspecified; K21.9 Gastro-esophageal reflux disease without esophagitis; N20.0 Calculus of kidney; E11.9 Type 2 diabetes mellitus without complications; J45.909 Unspecified asthma, uncomplicated; Z88.8 Allergy status to other drugs, medicaments and biological substances; Z88.5 Allergy status to narcotic agent; Z91.011 Allergy to milk products
CPT/HCPCS: 36415; 71046-TC-FY; 76705-TC; 80053; 81003; 82962; 83036; 84484; 85025; 85610; 85730; 86850; 86900; 86901; 87086; 93005; 93010; 93306-TC; 96372; 96374; 96376; 99285-25; G0378; J0131

== ENCOUNTER 2023-08-02 01:18 | Inpatient (IN) | payer BC ==
[2023-08-02 01:43] VITALS: BMI 29.5
[2023-08-02] MEDS ORDERED: ACETAMINOPHEN 325 MG TABLET (FP) ONE (02:54)
[2023-08-02 02:55] LABS: BASO % 0.6 % (0-2.0); HEMATOCRIT 44.7 % (35.4-49); HEMOGLOBIN 14.8 GM/dL (11.7-16.9); LYMPH % 14.6 % (8-40); MCH 27.7 pg (25.7-33.7); MCHC 33.2 g/dl (32.0-35.9); MEAN CELL VOLUME 83.6 fl (80-96); MEAN PLT VOLUME 8.6 fl (7.5-11.1); MONO % 9.7 % (3.8-10.2); NEUT % 73.1 % (42.8-82.8); PLATELET COUNT 178 10^3/uL (134-434); RBC 5.35 M/mm3 (4.00-5.60); RDW 13.5 % (11.9-15.9); WHITE BLOOD COUNT 6.8 K/mm3 (4.0-10.0)
[2023-08-02] MEDS: ACETAMINOPHEN 500 MG TABLET (FP) PO ONE (02:58)
[2023-08-02 03:13] LABS: POTASSIUM 3.5 mmol/L (3.5-5.1)
[2023-08-02 03:15] LABS: ALBUMIN 3.7 g/dl (3.4-5.0); BLOOD UREA NITROGEN 12.6 mg/dL (7-18); CALCIUM 8.6 mg/dL (8.5-10.1)
[2023-08-02 03:18] LABS: CREATININE 1.3 mg/dL (0.55-1.3)
[2023-08-02 03:20] LABS: BILIRUBIN,TOTAL 0.4 mg/dL (0.2-1); TOT PROT 6.8 g/dl (6.4-8.2)
[2023-08-02] MEDS: SODIUM CHLORIDE 0.9% 500 ML INFUS.BAG IV ONE (04:39)
[2023-08-02] MEDS ORDERED: HEPARIN NA (PORCINE) 5,000 UNITS/ML 1ML VIAL IVPUSH PRN (06:31)
[2023-08-02] MEDS ORDERED: ATORVASTATIN CA 80 MG TABLET (FP) ONE (06:39)
[2023-08-02] MEDS: HEPARIN NA (PORCINE) 5,000 UNITS/ML 1ML VIAL IV ONE ×2 (07:03→08:31)
[2023-08-02] MEDS: ATORVASTATIN CA 80 MG TABLET (FP) PO ONE (07:03)
[2023-08-02] MEDS: HEPARIN - 25,000 UNIT in SODIUM CHLORIDE 495 ML IV SCH (07:03)
[2023-08-02 07:28] LABS: ACTIVATED PTT 31.2 SECONDS (25.2-36.5)
[2023-08-02 07:50] LABS: INR 0.95 (0.83-1.09); PROTHROMBIN TIME (PATIENT) 10.7 SEC (9.7-13.0)
[2023-08-02] MEDS: CLOPIDOGREL BISULFATE 300 MG TABLET PO ONE (08:28)
[2023-08-02] MEDS ORDERED: CLOPIDOGREL BISULFATE 75 MG TABLET (FP) PO SCH (10:00)
[2023-08-02] MEDS: ASPIRIN COATED 81 MG TABLET.EC PO SCH (10:23)
[2023-08-02] MEDS: METOPROLOL TARTRATE 25 MG TABLET (FP) PO SCH (10:23)
[2023-08-02] MEDS: INSULIN ASPART SLIDING SCALE (NOVOLOG) 1 VIAL SQ SCH (10:26)
[2023-08-02] MEDS ORDERED: ALBUTEROL SO4 HFA INHALER IH PRN (11:25)
[2023-08-02] MEDS: HEPARIN NA (PORCINE) 5,000 UNITS/ML 1ML VIAL IVPUSH PRN (15:51)
[2023-08-02 18:50] VITALS: TEMP 98.2
[2023-08-02 21:04] VITALS: BP 126/88; PULSE 72; RESP 20
[2023-08-02] MEDS: ATORVASTATIN CA 80 MG TABLET (FP) PO SCH (21:33)
[2023-08-03] MEDS ORDERED: CLOPIDOGREL BISULFATE 75 MG TABLET (FP) PO SCH (10:00)
== END 2023-08-02 22:00 | disposition short-term general hospital (02) | DRG 282 ==
LOC: JER 01:18 → JERBED 06:32 → J4W 08:54
PROVIDERS: ADMIT Internal Medicine; ATTEND Internal Medicine
DX: I21.4 Non-ST elevation (NSTEMI) myocardial infarction (principal); R07.9 Chest pain, unspecified; E11.9 Type 2 diabetes mellitus without complications; E78.5 Hyperlipidemia, unspecified; K21.9 Gastro-esophageal reflux disease without esophagitis
CPT/HCPCS: 36415; 71045-TC-FY; 80053; 82962; 84484; 85025; 85610; 85730; 93005; 93010; 99285-25; J1644

== ENCOUNTER 2023-08-04 15:52 | Emergency (ER) | payer BC ==
[2023-08-04 16:06] VITALS: TEMP 97.6; BMI 29.5
[2023-08-04] MEDS: SODIUM CHLORIDE 0.9% 1000 ML INFUS.BAG IV ONE (17:11)
[2023-08-04 17:21] LABS: HEMATOCRIT 47.9 % (35.4-49); MCH 27.7 pg (25.7-33.7); MCHC 33.5 g/dl (32.0-35.9); MEAN CELL VOLUME 82.6 fl (80-96); MEAN PLT VOLUME 8.6 fl (7.5-11.1); PLATELET COUNT 220 10^3/uL (134-434); RBC 5.79 M/mm3 (4.00-5.60); RDW 13.5 % (11.9-15.9); WHITE BLOOD COUNT 9.6 K/mm3 (4.0-10.0)
[2023-08-04 17:33] LABS: POTASSIUM 5.8 mmol/L (3.5-5.1)
[2023-08-04 17:34] LABS: CALCIUM 9.4 mg/dL (8.5-10.1)
[2023-08-04 17:35] LABS: ALBUMIN 3.8 g/dl (3.4-5.0); BLOOD UREA NITROGEN 16.9 mg/dL (7-18)
[2023-08-04 17:38] LABS: CREATININE 1.3 mg/dL (0.55-1.3)
[2023-08-04 17:40] LABS: BILIRUBIN,TOTAL 0.8 mg/dL (0.2-1); TOT PROT 7.6 g/dl (6.4-8.2)
[2023-08-04] MEDS ORDERED: ACETAMINOPHEN 325 MG TABLET (FP) ONE (18:27)
[2023-08-04] MEDS: ACETAMINOPHEN 325 MG TABLET (FP) PO ONE (18:34)
[2023-08-04] MEDS: BACITRACIN ZINC 15 GM TUBE TOPICAL OINTMENT TP ONE (18:45)
[2023-08-04] MEDS ORDERED: BACITRACIN ZINC 15 GM TUBE TOPICAL OINTMENT ONE (18:45)
[2023-08-04 18:47] VITALS: RESP 16
[2023-08-04 19:24] LABS: POTASSIUM 3.7 mmol/L (3.5-5.1)
[2023-08-04 19:26] LABS: BLOOD UREA NITROGEN 16.4 mg/dL (7-18); CALCIUM 8.4 mg/dL (8.5-10.1)
[2023-08-04 19:30] LABS: CREATININE 1.2 mg/dL (0.55-1.3)
[2023-08-04 19:47] VITALS: BP 130/77; PULSE 72
== END 2023-08-04 21:20 | disposition home or self-care (01) ==
LOC: JER 15:52
DX: R42 Dizziness and giddiness (principal)
CPT/HCPCS: 36415; 71045-TC-FY; 80048; 80053; 85027; 93005; 93010; 99285-25

== ENCOUNTER 2023-08-13 11:50 | Inpatient (IN) | payer BC ==
[2023-08-13 12:29] VITALS: BMI 29.1
[2023-08-13 13:09] LABS: BASO % 0.4 % (0-2.0); EOS % 1.3 % (0-4.5); HEMOGLOBIN 16.6 GM/dL (11.7-16.9); LYMPH % 6.7 % (8-40); MCH 28.3 pg (25.7-33.7); MCHC 33.9 g/dl (32.0-35.9); MEAN CELL VOLUME 83.3 fl (80-96); MEAN PLT VOLUME 8.5 fl (7.5-11.1); MONO % 6.8 % (3.8-10.2); NEUT % 84.8 % (42.8-82.8); PLATELET COUNT 231 10^3/uL (134-434); RBC 5.88 M/mm3 (4.00-5.60); RDW 13.5 % (11.9-15.9); WHITE BLOOD COUNT 9.8 K/mm3 (4.0-10.0)
[2023-08-13 13:15] LABS: INR 0.98 (0.83-1.09); PROTHROMBIN TIME (PATIENT) 11.1 SEC (9.7-13.0)
[2023-08-13 13:17] LABS: ACTIVATED PTT 33.1 SECONDS (25.2-36.5)
[2023-08-13 13:29] LABS: ALBUMIN 4.5 g/dl (3.4-5.0); MAGNESIUM 2.5 mg/dL (1.8-2.4)
[2023-08-13 13:30] LABS: BLOOD UREA NITROGEN 11.4 mg/dL (7-18)
[2023-08-13 13:33] LABS: CREATININE 1.4 mg/dL (0.55-1.3)
[2023-08-13 13:34] LABS: BILIRUBIN,TOTAL 0.9 mg/dL (0.2-1)
[2023-08-13 13:35] LABS: TOT PROT 8.4 g/dl (6.4-8.2)
[2023-08-13 13:53] LABS: CALCIUM 9.8 mg/dL (8.5-10.1)
[2023-08-13] MEDS: LACTATED RINGERS SOLUTION 1000 ML INFUS.BAG IV ONE (13:59)
[2023-08-13] MEDS: MELATONIN 5 MG TABLETS PO ONE (21:15)
[2023-08-13] MEDS: ACETAMINOPHEN 325 MG TABLET (FP) PO ONE (21:16)
[2023-08-13] MEDS: ATORVASTATIN CA 80 MG TABLET (FP) PO SCH (21:17)
[2023-08-13] MEDS: TICAGRELOR 90 MG TABLET PO SCH (21:17)
[2023-08-13] MEDS: INSULIN ASPART SLIDING SCALE (NOVOLOG) 1 VIAL SQ SCH (21:25)
[2023-08-14] MEDS: sitaGLIPtin PHOSPHATE 50 MG TABLET PO SCH (06:14)
[2023-08-14 07:09] LABS: BASO % 0.8 % (0-2.0); EOS % 2.7 % (0-4.5); HEMATOCRIT 45.7 % (35.4-49); HEMOGLOBIN 15.2 GM/dL (11.7-16.9); MCH 27.8 pg (25.7-33.7); MCHC 33.3 g/dl (32.0-35.9); MEAN CELL VOLUME 83.7 fl (80-96); MEAN PLT VOLUME 8.5 fl (7.5-11.1); MONO % 9.5 % (3.8-10.2); PLATELET COUNT 201 10^3/uL (134-434); RBC 5.46 M/mm3 (4.00-5.60); RDW 13.6 % (11.9-15.9); WHITE BLOOD COUNT 7.2 K/mm3 (4.0-10.0)
[2023-08-14 07:17] LABS: POTASSIUM 4.1 mmol/L (3.5-5.1)
[2023-08-14 07:19] LABS: ALBUMIN 3.9 g/dl (3.4-5.0); CALCIUM 8.9 mg/dL (8.5-10.1)
[2023-08-14 07:20] LABS: BLOOD UREA NITROGEN 12.7 mg/dL (7-18)
[2023-08-14 07:22] LABS: CREATININE 1.1 mg/dL (0.55-1.3)
[2023-08-14 07:24] LABS: BILIRUBIN,TOTAL 0.7 mg/dL (0.2-1); TOT PROT 6.9 g/dl (6.4-8.2)
[2023-08-14] MEDS: PANTOPRAZOLE 40 MG TABLET PO SCH (09:45)
[2023-08-14] MEDS: ASPIRIN 81 MG CHEWABLE TABLETS PO SCH (09:45)
[2023-08-14] MEDS: EMPAGLIFLOZIN (JARDIANCE) 25 MG TABLET PO SCH (09:45)
[2023-08-14 14:16] VITALS: BP 116/77; PULSE 71; RESP 17; TEMP 97.8
[2023-08-14] MEDS: ACETAMINOPHEN 325 MG TABLET (FP) PO ONE (15:31)
== END 2023-08-14 16:39 | disposition home or self-care (01) | DRG 313 ==
LOC: JER 11:50 → JERBED 16:00 → J4S 17:22 → OBSVTOIN 18:02
PROVIDERS: ADMIT Internal Medicine; ATTEND Internal Medicine
DX: R07.89 Other chest pain (principal); N17.9 Acute kidney failure, unspecified; R42 Dizziness and giddiness; K21.9 Gastro-esophageal reflux disease without esophagitis; E78.5 Hyperlipidemia, unspecified; E78.00 Pure hypercholesterolemia, unspecified; I25.10 Atherosclerotic heart disease of native coronary artery without angina pectoris; J45.909 Unspecified asthma, uncomplicated; E86.0 Dehydration; I25.2 Old myocardial infarction; R51.9 Headache, unspecified; I12.9 Hypertensive chronic kidney disease with stage 1 through stage 4 chronic kidney disease, or unspecified chronic kidney disease; E11.22 Type 2 diabetes mellitus with diabetic chronic kidney disease; N18.9 Chronic kidney disease, unspecified; Z95.5 Presence of coronary angioplasty implant and graft
CPT/HCPCS: 0241U-QW; 36415; 70450-TC; 71045-TC-FY; 71275-TC; 80053; 82962; 83735; 84484; 85025; 85610; 85730; 93005; 93010; 93308; 99285-25; G0378; Q9967